=== PATIENT | female | born 1985 | race Caucasian/White ===

== ENCOUNTER 2017-02-23 00:57 | Inpatient (IN) | payer BC, OTHER ==
[~2017-02-23] VITALS: Ht 167.6 cm; Wt 46.3 kg
[~2017-02-23 00:57] MED LIST: DIPH25TA24 PO; LEVO75CA2 PO; NALT50TA9 PO; PRAZ2CAP3 PO; PRLSR20 PO; SERT100T PO
[2017-02-23] MEDS ORDERED: CNC/27 PO (01:15)
[2017-02-23] MEDS ORDERED: CEPH500C2 PO (01:16)
[2017-02-23] MEDS ORDERED: GENT0.3S6 EXT (01:18)
[2017-02-23] MEDS ORDERED: METH5TAB4 PO (01:19)
[2017-02-23] MEDS ORDERED: LEVO100T7 PO (01:20)
[2017-02-23] MEDS ORDERED: LEVO100C2 PO (01:29)
[2017-02-23] MEDS ORDERED: XYLOCAINE 1%/SOD BICARB 20 ML VIAL INFIL ONE (01:30)
[2017-02-23] MEDS ORDERED: ZOLPIDEM TARTRATE 5 MG TAB PO PRN (02:30)
[2017-02-23] MEDS ORDERED: ONDANSETRON INJ 2 MG/ML 2 ML VIAL IV PRN (02:30)
[2017-02-23] MEDS ORDERED: ACETAMINOPHEN 325 MG TAB PO PRN (02:30)
[2017-02-23 02:43] LABS: BASO % 0.4 %; BASO ABS # 0.02 K/uL (0-0.2); COMPLETE YES; EOS % 0.4 %; HEMATOCRIT 39.8 % (37-47); LYMPH ABS # 1.85 K/uL (1.2-3.4); MEAN CELL VOLUME 82.4 fL (80-100); MEAN CORPUSCULAR HEMOGLOBIN 26.7 pg (25-34); MEAN CORPUSCULAR HGB CONC 32.4 g/dl (32-36); MEAN PLATELET VOLUME 10.3 fL (7.4-10.4); MONO % 7.2 %; PLATELET COUNT 206 K/uL (130-400); RED BLOOD COUNT 4.83 M/uL (4.2-5.4); WHITE BLOOD COUNT 4.74 K/uL (4.8-10.8)
[2017-02-23] MEDS ORDERED: HYDROmorphone INJ 0.5 MG/0.5 ML SYR IV PRN (02:45)
--- NOTE | 2017-02-23 02:45 | EMERGENCY ROOM VISIT NOTE ---
History First contact with patient: :07 Chief Complaint: FINGER PAIN Stated Complaint: SEVERE PAIN IN FOREFINGER-DIAGNOSED INFECTION History of Present Illness The patient is a 31 year old female who presents to the Emergency Room with complaints of a worsening infection of her left index finger. The patient states that she has had swelling and pain in the finger for several days. She was seen by her nurse chemical dependency 4 days ago and prescribed Keflex orally and gentamicin drops, which she has been using since 3 days ago. She states that the swelling has increased and she has had worsening pain. She rates her discomfort an 8/10. She denies any injury to the finger. She denies any fevers. Review of Systems A complete 10 point review of systems was reviewed with the patient with pertinent positives and negatives as per history of present illness. All else were negative. Past Medical/Surgical History Medical Problems: (1) Felon of finger of left hand (2) IBS (irritable bowel syndrome) Surgical Problems: (1) [place] teeth extracted Family History Cancer Diabetes mellitus Heart disease Hypertension Social History Smoking Status: Never Smoker Alcohol Use: none Drug Use: none Marital Status: single Housing Status: lives with family Occupation Status: employed Current/Historical Medications Scheduled Cephalexin Monohydrate (Keflex), 500 MG PO BIDM Gentamicin Sulfate (Ophth) (Gentak), 1 APPLN EXT TID Levothyroxine Sodium (Tirosint), 100 MCG PO DAILY Methylphenidate (Ritalin), 5 MG PO DIRECTED Methylphenidate Hcl (Concerta), 27 MG PO DAILY Omeprazole (Prilosec), 20 MG PO DAILY Scheduled PRN Diphenhydramine Hcl (Benadryl), 25 MG PO Q6 PRN for ITCHING Physical Exam Vital Signs Date Time Temp Pulse Resp B/P (MAP) Pulse Ox O2 Delivery O2 Flow Rate FiO2 02/23/17 01:02 36.3 69 18 112/73 100 Room Air Physical Exam VITALS: Vitals are noted on the nurse's note and reviewed by myself. Vital signs stable. GENERAL: This is a 31-year-old female, in no acute distress, nondiaphoretic, well-developed well-nourished. MUSCULOSKELETAL: Redness, swelling and fluctuance to the finger pad left second finger. There is a small whitish area just lateral to the nail bed. There is significant tenderness to palpation over the entire distal phalanx of the finger. NEURO: Patient was alert and oriented to person place and time. Normal sensation to light and sharp touch. Medical Decision & Procedures ER Provider Diagnostic Interpretation: LEFT SECOND FINGER: Soft tissue swelling of the distal finger with no bony abnormalities. Laboratory Results ED Course The patient was evaluated as above. Case was discussed with Dr. Abarca of orthopedics. He will perform incision and drainage. Patient was evaluated by orthopedics. Please see their dictation for further course and patient disposition. Medical Decision Differential diagnosis includes felon, paronychia, tenosynovitis, among others. The patient is a 31-year-old female who presents today complaining of swelling and pain of the finger. Patient is on antibiotics as an outpatient and has been worsening. Exam is concerning for a felon. The case was discussed with orthopedics, Dr. Edge. He will evaluate the patient in the emergency Department for incision and drainage and possible admission. The patient's case was reviewed with Dr. Hansen, ED attending physician, who agreed with my assessment and treatment plan. Medication Reconcilliation Current Medication List: was personally reviewed by ak Blood Pressure Screening Patient's blood pressure: Normal blood pressure Impression Primary Impression: Felon of finger of left hand Departure Information Referrals Pako Jiang M.D. (PCP) Patient Instructions My [facility]
[2017-02-23 02:59] LABS: BLOOD UREA NITROGEN 14 mg/dl (7-18); BUN/CREATININE RATIO 21.7 (10-20); CALCIUM 9.4 mg/dl (8.5-10.1); CARBON DIOXIDE 29 mmol/L (21-32); CHLORIDE 100 mmol/L (98-107); CREATININE 0.64 mg/dl (0.60-1.20); GLUCOSE 84 mg/dl (70-99); POTASSIUM 3.5 mmol/L (3.5-5.1); SODIUM 135 mmol/L (136-145)
[2017-02-23 03:05] LABS: C-REACTIVE PROTEIN < 0.29 mg/dl (0-0.29)
--- NOTE | 2017-02-23 03:56 | History and Physical ---
History & Physical Date & Time of Service: Feb 23, 2017 at 03:45 Chief Complaint: Severe Pain In Forefinger-Diagnosed Infection Primary Care Physician: Pako Jiang M.D. History of Present Illness Patient is a 31-year-old right-hand dominant female who started having pain in the left index finger approximately week and a half ago. Pain is progressively worsened. She made an appointment to see a rod and tube straightener but it took a week to get in. She saw this individual on Friday and started on Keflex twice a day. Unfortunately her fingers continued to progress. She's been having purulent drainage from adjacent to the nail bed. She doesn't recall any trauma to the nail bed or the finger. She says the tip of the finger feels numb. Denies any fevers chills or systemic symptoms. Never previously had a problem with this finger. She says it feels better if she elevates it and worse if it' s in a dependent position. Past Medical/Surgical History Medical Problems: (1) IBS (irritable bowel syndrome) Status: Chronic Surgical Problems: (1) [place] teeth extracted Status: Resolved Family History Cancer Diabetes mellitus Heart disease Hypertension Patient reports a history of addiction to pain medication in her family Social History Smoking Status: Never Smoker Drug Use: none Marital Status: single Occupational Status: employed Multi-Drug Resistant Organisms History of MDRO: No Allergies Coded Allergies: Bupropion (Unverified Allergy, Mild, 02/23/17) Fluoxetine (Unverified Allergy, Mild, 02/23/17) Levothyroxine (Unverified Allergy, Mild, 02/23/17) Home Medications Scheduled Cephalexin Monohydrate (Keflex), 500 MG PO BIDM Gentamicin Sulfate (Ophth) (Gentak), 1 APPLN EXT TID Levothyroxine Sodium (Tirosint), 100 MCG PO DAILY Methylphenidate (Ritalin), 5 MG PO DIRECTED Methylphenidate Hcl (Concerta), 27 MG PO DAILY Omeprazole (Prilosec), 20 MG PO DAILY Scheduled PRN Diphenhydramine Hcl (Benadryl), 25 MG PO Q6 PRN for ITCHING Review of Systems Constitutional: No fever, No chills, No sweats Musculoskeletal: + joint pain, + swelling Neurologic: + numbness/tingling Physical Exam Vital Signs Date Time Temp Pulse Resp B/P (MAP) Pulse Ox O2 Delivery O2 Flow Rate FiO2 02/23/17 01:02 36.3 69 18 112/73 100 Room Air General Appearance: + mild distress Head: normocephalic, atraumatic Eyes: normal inspection Respiratory/Chest: no respiratory distress, no accessory muscle use Cardiovascular: normal peripheral pulses Extremities/Musculoskelatal: + inflammation, + swelling, + pertinent finding ( examination of her bilateral hands reveals full range of motion no tenderness and 5 out 5 strength with normal ligamentous exam on the right unaffected hand. On the affected left hand she has swelling from the DIP to the tip of the finger. There is redness and decreased sensation to light touch over the distal phalanx. There is yellowish colored area of purulence immediately under the skin that's visible just along the radial aspect of the fingernail. She has tenderness to palpation on both the dorsal and volar aspect of the finger. Range of motion is limited at the DIP joint from 0-30. Full range of motion at the PIP and MCP joints. Ligament exam is normal.) Neurologic/Psych: alert, oriented x 3 Skin: no rash Diagnostics Laboratory Results Results Past 24 Hours Test 02/23/17 02:30 Range/Units White Blood Count 4.74 4.8-10.8 K/uL Red Blood Count 4.83 4.2-5.4 M/uL Hemoglobin 12.9 12.0-16.0 g/dL Hematocrit 39.8 37-47 % Mean Corpuscular Volume 82.4 80-100 fL Mean Corpuscular Hemoglobin 26.7 25-34 pg Mean Corpuscular Hemoglobin Concent 32.4 32-36 g/dl Platelet Count 206 130-400 K/uL Mean Platelet Volume 10.3 7.4-10.4 fL Neutrophils (%) (Auto) 53.0 % Lymphocytes (%) (Auto) 39.0 % Monocytes (%) (Auto) 7.2 % Eosinophils (%) (Auto) 0.4 % Basophils (%) (Auto) 0.4 % Neutrophils # (Auto) 2.51 1.4-6.5 K/uL Lymphocytes # (Auto) 1.85 1.2-3.4 K/uL Monocytes # (Auto) 0.34 0.11-0.59 K/uL Eosinophils # (Auto) 0.02 0-0.5 K/uL Basophils # (Auto) 0.02 0-0.2 K/uL RDW Standard Deviation 46.8 36.4-46.3 fL RDW Coefficient of Variation 15.5 11.5-14.5 % Immature Granulocyte % (Auto) 0.0 % Immature Granulocyte # (Auto) 0.00 0.00-0.02 K/uL Erythrocyte Sedimentation Rate 38 0-21 mm/hr Sodium Level 135 136-145 mmol/L Potassium Level 3.5 3.5-5.1 mmol/L Chloride Level 100 98-107 mmol/L Carbon Dioxide Level 29 21-32 mmol/L Anion Gap 6.0 3-11 mmol/L Blood Urea Nitrogen 14 7-18 mg/dl Creatinine 0.64 0.60-1.20 mg/dl Est Creatinine Clear Calc Drug Dose 93.9 ml/min Estimated GFR () 138.8 Estimated GFR (Non- 119.7 BUN/Creatinine Ratio 21.7 10-20 Random Glucose 84 70-99 mg/dl Calcium Level 9.4 8.5-10.1 mg/dl C-Reactive Protein < 0.29 0-0.29 mg/dl Diagnostic Radiology X-rays 3 views of the left finger are reviewed. Soft tissue swelling is noted at the distal phalanx of the index finger. There is no bony erosions to suggest osteomyelitis. No arthritis noted on these films Impression Assessment and Plan Assessment left index finger paronychia. Plan: After informed consent was obtained the hand was prepped with Betadine. A digital nerve block was performed with 8 mL of 1% lidocaine without epinephrine. When she was numb, a 1/2 cm longitudinal incision was made along the radial aspect of the distal phalanx. Purulence was immediately encountered below the incision distally. A single swab culture was obtained and sent to the lab for Gram stain aerobic and anaerobic cultures. A curved hemostat was used to explore the abscess cavity which did track down to the bone of the distal phalanx. It did not have significant tracking into the volar pulp or dorsally. The finger was manually palpated to express any further purulence. I then irrigated out the wound was 100 mL of normal saline. Quarter-inch packing strip was packed into the wound to keep it open. A 2 x 2 and 4 x 4s and loose fitting Yaima wrap were applied followed by Coban. Patient will be admitted to the hospital. She'll be started on IV Unasyn. I' ll follow her cultures. She'll elevate the finger. Tomorrow I will remove the dressing and have her nurses soak the finger and none normal saline swishing it for a 30 minutes and then have her recover the wound with 2 x 2 Yaima wrap and a 1 inch Coban. She will elevate the finger. We'll continue her home medication. No DVT prophylaxis will be prescribed as she is young without risk factors and this is a small incision. VTE Prophylaxis VTE Risk Assessment Done? Y/N: Yes Risk Level: Very Low
[2017-02-23 04:15] VITALS: BP 109/73; PULSE 83; TEMP 36.8; O2SAT 100; Ht 167.6 cm; Wt 46.3 kg
[2017-02-23] MEDS: OXYCODONE/ACETAMINOPHEN 5-325 TAB PO PRN ×5 (04:18→19:39)
[2017-02-23] MEDS: AMPICILLIN/SULBACTAM SOD INJ 3,000 MG in SODIUM CHLORIDE 0.9% 100ML 100 ML IV SCH ×4 (04:55→22:10)
[2017-02-23] MEDS: LEVOTHYROXINE 0.1 MG PO SCH (05:03)
[2017-02-23 07:22] VITALS: BP 97/62; PULSE 81; TEMP 36.5; O2SAT 100
[2017-02-23] MEDS: PANTOprazole SOD 40 MG TAB PO SCH (07:25)
[2017-02-23] MEDS: DOCUSATE SODIUM 100 MG CAP PO SCH ×2 (07:25→21:00)
[2017-02-23] MEDS ORDERED: INFLUENZA VIRUS QUAD VACCINE 0.5 ML SYR IM. ONE (08:00)
[2017-02-23] MEDS ORDERED: INFLUENZA ADMINISTRATION CHARGE ONE (08:00)
--- NOTE | 2017-02-23 08:08 | DIAGNOSTIC IMAGING REPORT ---
LEFT SECOND FINGER 3 VIEWS HISTORY: left second finger swelling, pain COMPARISON: None. FINDINGS: There is no fracture or dislocation. Soft tissue swelling most pronounced distally. No erosions identified. No radiopaque foreign bodies. IMPRESSION: No fractures. Soft tissue swelling within the left index finger. Electronically signed by: Reddy Castro M.D. 02/23/2017 8:06 AM Dictated Date/Time: 02/23/2017 8:06 AM
[2017-02-23] MEDS: METHYLPHENIDATE HCL 10 MG TAB PO SCH (08:23)
[2017-02-23] MEDS: RANITIDINE HCL 150 MG TAB PO SCH ×2 (08:40→21:00)
[2017-02-23 15:05] VITALS: BP 99/63; PULSE 81; TEMP 36.6; O2SAT 100
[2017-02-23] MEDS: CONCERTA~ORDER AWAITING ACTION SCH ×3 (15:07→23:56)
[2017-02-23 15:20] VITALS: O2SAT 100
[2017-02-23] MEDS ORDERED: BENADRYL 25 MG PO PRN (19:30)
--- NOTE | 2017-02-23 19:45 | Orthopedic Progress Note ---
Orthopedic Progress Note Date of Service Feb 23, 2017. Subjective Reports: complaints (left index finger pain/pressure), Denies: SOB, nausea / vomiting, light headedness Additional Notes: Admitted this morning at around 4am after Left index finger I&D. Mother is in the room. Patient is tearful. Objective N/V intact, capillary refill less than 2 sec., dressing C/D/I, A&O x3 Dressings were removed. Finger looks good. Incision is bleeding. No purulent drainage. Intact motor function to finger at PIP and DIP. Date Time Temp Pulse Resp B/P (MAP) Pulse Ox O2 Delivery O2 Flow Rate FiO2 02/23/17 15:20 100 Room Air 02/23/17 15:05 36.6 81 16 99/63 (75) 100 Room Air 02/23/17 09:04 Room Air 02/23/17 07:22 36.5 81 16 97/62 (74) 100 Room Air 02/23/17 04:15 36.8 83 16 109/73 100 Room Air 02/23/17 03:53 62 18 104/69 98 Room Air 02/23/17 01:02 36.3 69 18 112/73 100 Room Air Laboratory Results 24 Hours: Test 02/23/17 02:30 White Blood Count 4.74 K/uL Red Blood Count 4.83 M/uL Hemoglobin 12.9 g/dL Hematocrit 39.8 % Mean Corpuscular Volume 82.4 fL Mean Corpuscular Hemoglobin 26.7 pg Mean Corpuscular Hemoglobin Concent 32.4 g/dl Platelet Count 206 K/uL Mean Platelet Volume 10.3 fL Neutrophils (%) (Auto) 53.0 % Lymphocytes (%) (Auto) 39.0 % Monocytes (%) (Auto) 7.2 % Eosinophils (%) (Auto) 0.4 % Basophils (%) (Auto) 0.4 % Neutrophils # (Auto) 2.51 K/uL Lymphocytes # (Auto) 1.85 K/uL Monocytes # (Auto) 0.34 K/uL Eosinophils # (Auto) 0.02 K/uL Basophils # (Auto) 0.02 K/uL Assessment & Plan Assessment: Left index finger s/p I&D Plan: Dressings were removed and finger was soaked for 20min in NSS. Bandages were re-applied. Will recheck the finger tomorrow and anticipate discharge if cultures are filed. continue ice/elevation continue pain medication as needed continue antibiotics until sensitivities are known. Discharge Planning Discharge Planning: home
[2017-02-23] MEDS ORDERED: IBUPROFEN 200 MG TAB PO PRN (20:15)
[2017-02-23 23:00] VITALS: BP 92/52; PULSE 65; TEMP 36.7; O2SAT 96
[2017-02-24] MEDS: LEVOTHYROXINE 0.1 MG PO SCH (05:38)
[2017-02-24] MEDS: AMPICILLIN/SULBACTAM SOD INJ 3,000 MG in SODIUM CHLORIDE 0.9% 100ML 100 ML IV SCH ×3 (05:38→17:05)
[2017-02-24 07:25] VITALS: BP 87/59; PULSE 71; TEMP 36.5; O2SAT 100
[2017-02-24] MEDS: CONCERTA~ORDER AWAITING ACTION SCH ×2 (07:31→16:00)
[2017-02-24] MEDS: RANITIDINE HCL 150 MG TAB PO SCH (08:52)
[2017-02-24] MEDS: PANTOprazole SOD 40 MG TAB PO SCH (08:52)
[2017-02-24] MEDS: DOCUSATE SODIUM 100 MG CAP PO SCH (08:52)
[2017-02-24] MEDS: METHYLPHENIDATE HCL 10 MG TAB PO SCH (08:56)
[2017-02-24] MEDS ORDERED: DiphenhydrAMINE HCL 12.5MG/5 ML UDC PO SCH (09:00)
[2017-02-24 09:13] VITALS: BP 102/72
[2017-02-24 15:30] VITALS: O2SAT 100
[2017-02-24 15:36] VITALS: BP 97/63; PULSE 79; TEMP 36.8; O2SAT 98
[2017-02-24] MEDS ORDERED: AMOX875T PO (16:23)
--- NOTE | 2017-02-24 16:28 | Discharge Instructions ---
Discharge Instructions Date of Service Feb 24, 2017. Admission Reason for Admission: Felon Of Finger Of Left Hand Discharge Discharge Diagnosis / Problem: Felon Left hand (index finger) Discharge Goals Goal(s): Decrease discomfort, Improve function, Increase independence Activity Recommendations Activity Limitations: as noted below Lifting Limitations: gradually increase as tolerated Exercise/Sports Limitations: none May Resume Sexual Activity: when tolerated Shower/Bathe: tomorrow, keep incision dry Driving or Machine Use: no limitations Keep incision site clean, dressed and covered. . Instructions / Follow-Up Instructions / Follow-Up Post-operative Instructions Dear Patient and Family/Friends, Before you are discharged from the hospital, it is important to know what to expect when you get home after surgery. To that end, we have created this sheet of discharge instructions which covers many commonly asked questions. Make sure you go through this sheet in its entirety with your nurse before you are discharged. Please note that we will go over the specifics of your surgery and recovery when you return for your first post-operative visit. Sincerely, Dr. Edge Pain Expect to be in a fair amount of pain after surgery. Remember, our goal is not to eliminate your pain, but to make it tolerable. It is a good idea to stay ahead of your pain by taking the medications you were prescribed once you get home. Typically, the pain starts improving 3-7 days after surgery. You should start weaning off the narcotic pain medication (oxycodone, hydrocodone, hydromorphone, morphine) as soon as your pain improves. Please call our office if your pain is not adequately controlled. Diet/Nausea/Vomiting Start by drinking clear liquids and eating crackers. If you can tolerate this, then you may resume your normal diet. If you feel nauseated or vomit, take Zofran/ondansetron (if prescribed). Please call our office if you have intractable nausea or vomiting, or, if after hours, you may go to the Emergency Room for help. Weight bearing and Range of Motion. Do not bear any weight through your operative extremity immediately after surgery. If you had upper extremity surgery, do not lift anything with that arm. If you are in a knee brace, keep it locked in place until your follow-up. We will discuss your weight bearing, range of motion, and lifting restrictions in detail at your first post-operative appointment. Continuous Passive Motion (CPM) Machine If you were prescribed a CPM machine, it will start after your first post- operative appointment, at which time we will give you instructions on the range of motion settings and duration of treatment Wound care and showering We will inspect your wound at your first post-operative visit, and may do a dressing change at that time. Most patients will be in a water-proof dressing that is removed 14 days after surgery. It is normal to see some dried blood on the dressing. Do not remove your dressing, paper strips or sutures yourself unless you are given permission. Showering is allowed the day after surgery. Do not scrub or remove any dressings. The wound should not be submerged underwater (i.e. in a bathtub or pool) until 4 weeks after surgery Return to Work Your return to work depends on what surgery was done and what type of work you do. Please bring any paperwork your employer needs completed to your first post -operative visit. Also, bring a description of your job duties, as this helps us to understand what risks you may face at work. Travel Avoid long distance travel (greater than 1 hour) in airplanes and cars for the first 6 weeks after surgery. If you must travel, you need to have a Doppler ultrasound done before you travel to rule out a blood clot in your legs. Follow-up You should have a follow-up appointment already scheduled 1-2 days after surgery. If not, please contact our office to make this appointment before you leave the hospital. (Follow up with Jamilah @ [facility] on 03/03/17. Call [phone] for appt time.) When to call the office It is normal to have swelling and bruising in the limb that was operated on. This will improve with time. It is also normal to have fevers for the first 2 days after surgery. Reasons you should call your doctor include: Uncontrolled pain; Nausea, vomiting, or constipation that does not improve with medication; Fevers over 101.5, chills, sweats; Drainage or bleeding from the wound; Foul odor; Spreading areas of redness; Any other concerns Current Hospital Diet Patient's current hospital diet: Regular Diet Discharge Diet Recommended Diet: Regular Diet Pending Studies Studies pending at discharge: no Medical Emergencies . Who to Call and When: Medical Emergencies: If at any time you feel your situation is an emergency, please call 911 immediately. . Non-Emergent Contact Non-Emergency issues call your: Primary Care Provider Call Non-Emergent contact if: you have a fever, temperature is above 101.5, your pain is not controlled, your pain is worsening, wound has increased drainage, wound has increased redness, you have any medication questions . "Provider Documentation" section prepared by Lawrence Houston. . VTE Core Measure Inpt VTE Proph given/why not?: Treatment not indicated [place] Drug Monitoring Program Search Results: patient reviewed within database, no issues identified, see additional documentation
--- NOTE | 2017-02-24 16:34 | Orthopedic Progress Note ---
Orthopedic Progress Note Date of Service Feb 24, 2017. Subjective Post OP Day: Day 2 s/p Left index finger I&D Reports: feeling well, pain controlled w PO medications, Denies: complaints, chest pain, SOB, nausea / vomiting, light headedness, calf pain, using PRICE CHANGER Objective N/V intact, capillary refill less than 2 sec., dressing C/D/I, incision C/D/I, A &O x3, CMS intact 1 cm incision site on lateral surface of Left index finger is only minimally tender to palpation. No active drainage/discharge. Limited ROM due to edema. Mild erythema. NO warmth, ecchymosis noted. Periph pulses easily palpable. N/ V intact in entire Lt hand with appropriate finger dexterity. Date Time Temp Pulse Resp B/P (MAP) Pulse Ox O2 Delivery O2 Flow Rate FiO2 02/24/17 15:36 36.8 79 16 97/63 (74) 98 Room Air 02/24/17 09:13 102/72 (82) 02/24/17 07:25 Room Air 02/24/17 07:25 36.5 71 16 87/59 (68) 100 Room Air 02/23/17 23:51 Room Air 02/23/17 23:00 36.7 65 18 92/52 (65) 96 Room Air Assessment & Plan Assessment: Left index finger s/p I&D Plan: Dressings were removed and finger is to be soaked for 20min in NSS. Bandages will need reapplied before discharge. continue ice/elevation continue pain medication as needed continue antibiotics until sensitivities are known. Start Oral Augmentin tonight F/u with Jamilah Houston PA-C at [facility] on Friday03/04/17. Discharge Planning Discharge Planning: home
--- NOTE | 2017-02-24 16:39 | Discharge Summary ---
Orthopedic Discharge Summary Admission Date/Reason Feb 23, 2017 at 02:29 Felon Of Finger Of Left Hand. Discharge Date/Disposition Feb 24, 2017 Home Diagnosis Principal Diagnosis: I&D felon Left index finger Procedure(s) Performed I&D of Felon of Left index finger Medication Reconciliation All previous home meds. Oral Keflex was discontinued Patient will be on oral Augmentin 875 BID x 14 days. Admission Physical Exam As per Admitting History & Physical. Hospital Course Over night stay with IV ABX after I&D of Left index finger felon. Patient did very well and is currently experiencing no pain and is ready to go home. After this evenings dose of Unysn patient may be discharged and is to start on oral Augmentin. Will F/u in our clinic on 03/04/17. Patient will call for appointment time. Discharge Instructions Please refer to the electronic Patient Visit Report (Discharge Instructions) for additional information.
[2017-02-24 18:01] VITALS: BP 97/63; PULSE 79; TEMP 36.8; O2SAT 98
== END 2017-02-24 18:38 | disposition home or self-care (01) | DRG 603 ==
LOC: C.EDB 00:58 → C.MSW 02:29 → ENRESERV 03:04
PROVIDERS: ADMIT Orthopaedic Surgery; ATTEND Orthopaedic Surgery
PROC: 0J9K0ZX Drainage of Left Hand Subcutaneous Tissue and Fascia, Open Approach, Diagnostic (ICD-10-PCS; principal; 2017-02-23)
DX: L03.012 Cellulitis of left finger (principal); Z79.899 Other long term (current) drug therapy; Z83.3 Family history of diabetes mellitus; Z82.49 Family history of ischemic heart disease and other diseases of the circulatory system; Z81.4 Family history of other substance abuse and dependence

== ENCOUNTER 2017-03-15 07:09 | Emergency (ER) | payer BC ==
[~2017-03-15] VITALS: Ht 167.6 cm; Wt 48.1 kg
[~2017-03-15 07:09] MED LIST changes: +CNC/27 PO; +GENT0.3S6 EXT; +LEVO100C2 PO; -LEVO75CA2 PO; +METH5TAB4 PO; -NALT50TA9 PO; -PRAZ2CAP3 PO; -SERT100T PO
[2017-03-15 07:13] VITALS: TEMP 36.3; Ht 167.6 cm; Wt 48.1 kg
[2017-03-15] MEDS ORDERED: XYLOCAINE 1%/SOD BICARB 20 ML VIAL INFIL ONE (07:18)
[2017-03-15] MEDS ORDERED: BUPIVACAINE 0.25% 30 ML VIAL ONE (07:25)
[2017-03-15] MEDS ORDERED: DIPH25CA5 PO (08:36)
[2017-03-15] MEDS ORDERED: OXYC-57 PO (08:46)
[2017-03-15] MEDS ORDERED: AMOX1TAB42 PO (08:46)
--- NOTE | 2017-03-15 08:53 | EMERGENCY ROOM VISIT NOTE ---
ED Visit Note First contact with patient: 07:38 31 yof s/p I&D L index finger paronychia 3 weeks ago. Was on oral antibiotics for 2 weeks afterwards. Has had recurrent swelling in the index finger since antibiotics completed 1 week ago. PE: L index finger swollen, worst around the nail and distal phalanx. NVI A: Recurrent L index finger paronychia Plan: After obtaining informed consent, her hand was prepped with betadine and sterily draped. A digital block was performed with a 1:1 mixture of 0.5% bupivicaine and 1% lidocaine. Once she was numb, an incision was made along the radial paronycial fold, extending longitudinally onto the eponycium. The was a small amount of purulence encountered, less than 1 cc. A freer elevator was used to lift the nail and 2 mm of the radial side of the nail was carefully trimmed to avoid damaging the sterile matrix. Necrotic appearing tissue was removed, and the skin was trimmed adjacent to her previous incision. The wound was irrigated with 1000 cc of normal saline, and the wound was packed with xeroform, then covered with a 4x4, 1 inch Kerlix and Coban. Patient tolerated this well She will D/C home to return tomorrow to the ER for a dressing change. Prescriptions given for Augmentin and Percocet. Follow-up in my clinic on Friday AM for another dressing change . Problem List Medical Problems: (1) IBS (irritable bowel syndrome) Status: Chronic Surgical Problems: (1) [place] teeth extracted Status: Resolved Current/Historical Medications Scheduled Levothyroxine Sodium (Tirosint), 100 MCG PO DAILY Methylphenidate (Ritalin), 5 MG PO DIRECTED Methylphenidate Hcl (Concerta), 27 MG PO DAILY Omeprazole (Prilosec), 20 MG PO DAILY Scheduled PRN Diphenhydramine Hcl (Benadryl), 25 MG PO Q6 PRN for Anxiety/Insomnia Allergies Coded Allergies: Bupropion (Verified Allergy, Mild, 03/15/17) Fluoxetine (Verified Allergy, Mild, 03/15/17) Levothyroxine (Verified Allergy, Mild, 03/15/17) Vital Signs Date Time Temp Pulse Resp B/P (MAP) Pulse Ox O2 Delivery O2 Flow Rate FiO2 03/15/17 07:13 36.3 79 16 115/77 99 Room Air Departure Information Impression Primary Impression: Paronychia of left index finger Dispostion Home / Self-Care Condition GOOD Prescriptions Amoxicillin & Pot Clavulanate (AMOXICILLIN/CLAVULANATE P) 1 Tab Tab 1 TAB PO BID for 7 Days, #14 TAB Prov: Jose Luis Edge MD 03/15/17 Oxycodone/Acetaminophen 5MG/325MG (PERCOCET 5MG/325MG) Tab 1-2 TABLETS PO Q4H Y for Pain for 5 Days, #20 TAB PAIN Prov: Jose Luis Edge MD 03/15/17 Referrals Pako Jiang M.D. (PCP) Patient Instructions My [facility] Additional Instructions Follow-up in the [facility] ER tomorrow for a dressing change. Remove dressing. Soak and swish finger in normal saline for 20 minutes, then pack the wound with xeroform, cover with 4x4, loosely wrap with 1 inch Kerlix and Coban. Take Augmentin as prescribed. Percocet given for pain control Work Instructions Return To Work: 1 week
[2017-03-15 09:12] VITALS: BP 113/67; PULSE 74; O2SAT 99
== END 2017-03-15 09:12 | disposition home or self-care (01) ==
LOC: C.EDB 07:10 → C.EDA 09:12
DX: L03.012 Cellulitis of left finger (principal); Z98.818 Other dental procedure status

== ENCOUNTER 2017-03-16 09:25 | Emergency (ER) | payer BC ==
[~2017-03-16] VITALS: Ht 167.6 cm; Wt 47.0 kg
[~2017-03-16 09:25] MED LIST changes: +AMOX1TAB42 PO; +DIPH25CA5 PO; -DIPH25TA24 PO; -GENT0.3S6 EXT; +OXYC-57 PO
[2017-03-16 09:27] VITALS: BP 100/67; PULSE 80; TEMP 36.8; O2SAT 98; Ht 167.6 cm; Wt 47.0 kg
--- NOTE | 2017-03-16 13:54 | EMERGENCY ROOM VISIT NOTE ---
History Report prepared by Bartolo: Valentine Jacobsen Under the Supervision of: Dr. Silas Keller M.D. First contact with patient: 09:35 Chief Complaint: WOUND RECHECK Stated Complaint: LEFT FINGER WOUND,RETURN VISIT Nursing Triage Summary: Pt states she is here for wound recheck, re pack. Left 2nd finger. History of Present Illness The patient is a 31 year old female who presents to the Emergency Room for a wound recheck. The patient had a paronychia of her left 2nd finger drained yesterday. She was told to return for wound recheck, packing, and rewrapping. The patient has been feeling well otherwise. She denies any fever or vomiting. She notes that she did not have a fever prior to the paronychia being drained. Before the paronychia, she first had a felon. She is right handed. Source of History: patient Onset: today Position: finger(s) (left 2nd) Quality: other (wound recheck) Timing: other (episodic) Associated Symptoms: No fevers, No vomiting Review of Systems See HPI for pertinent positives & negatives. A total of 2 systems reviewed and were otherwise negative. Past Medical & Surgical Medical Problems: (1) Felon of finger of left hand (2) IBS (irritable bowel syndrome) Surgical Problems: (1) [place] teeth extracted Family History Cancer Diabetes mellitus Heart disease Hypertension Social History Smoking Status: Never Smoker Alcohol Use: none Drug Use: none Marital Status: single Housing Status: lives with family Occupation Status: employed Current/Historical Medications Scheduled Amoxicillin & Pot Clavulanate (Amoxicillin/Clavulanate P), 1 TAB PO BID Levothyroxine Sodium (Tirosint), 100 MCG PO DAILY Methylphenidate (Ritalin), 5 MG PO DIRECTED Methylphenidate Hcl (Concerta), 27 MG PO DAILY Omeprazole (Prilosec), 20 MG PO DAILY Scheduled PRN Diphenhydramine Hcl (Benadryl), 25 MG PO Q6 PRN for Anxiety/Insomnia Oxycodone/Acetaminophen 5MG/325MG (Percocet 5MG/325MG), 1-2 TABLETS PO Q4H PRN for Pain Allergies Coded Allergies: Bupropion (Verified Allergy, Mild, 03/15/17) Fluoxetine (Verified Allergy, Mild, 03/15/17) Levothyroxine (Verified Allergy, Mild, 03/15/17) Physical Exam Vital Signs Date Time Temp Pulse Resp B/P (MAP) Pulse Ox O2 Delivery O2 Flow Rate FiO2 03/16/17 09:27 36.8 80 16 100/67 98 Room Air Physical Exam Constitutional: Vital signs reviewed. Musculoskeletal: The radial aspect of the left second digit demonstrates a subcentimeter skin avulsion without purulent drainage. There is a strip of avulsed epidermis just proximal to this. Integumentary: As above. Neurological: The patient is awake and alert. No focal deficits. Psychiatric: Normal affect. Medical Decision & Procedures ED Course 937: The patient was evaluated in room C1B. A complete history and physical exam was performed. I discussed sasha's findings with her. She verbalized agreement of the treatment plan. She was discharged home. Medical Decision This is a 31-year-old female presents for wound recheck. I did perform a limited focused review of portions of the patient's old chart on the electronic medical record. The patient was here yesterday for paronychia to the finger which [facility] She was sent home on antibiotics and pain medications. She was told to come back today for a dressing change. I did evaluate the patient as noted above. The dressing and Xeroform were removed carefully with normal saline. There is no cavity in which to place packing in this wound. I did use iodoform gauze which I placed over the avulsed skin and then applied Vaseline gauze over this. A 4 x 4 was placed over this and the dressing was secured with Coban. The patient was advised follow up tomorrow with her orthopedic doctor per her appointment. Medication Reconcilliation Current Medication List: was personally reviewed by me Blood Pressure Screening Patient's blood pressure: Normal blood pressure Blood pressure disposition: Did not require urgent referral Impression Primary Impression: Paronychia Additional Impression: Encounter for wound re-check Scribe Attestation The scribe's documentation has been prepared under my direct and personally reviewed by me in its entirety. I confirm that the note above accurately reflects all work, treatment, procedures, and medical decision making performed by me. Departure Information Dispostion Home / Self-Care Referrals Pako Jiang M.D. (PCP) Forms HOME CARE DOCUMENTATION FORM, IMPORTANT VISIT INFORMATION, WORK / SCHOOL INSTRUCTIONS Patient Instructions My [facility] Additional Instructions Follow up with your doctor tomorrow per your appointment. Problem Qualifiers
== END 2017-03-16 10:00 | disposition home or self-care (01) ==
LOC: C.EDB 09:26 → C.EDC 10:00
DX: Z48.01 Encounter for change or removal of surgical wound dressing (principal); L03.012 Cellulitis of left finger; K58.9 Irritable bowel syndrome, unspecified; Z79.899 Other long term (current) drug therapy; Z88.8 Allergy status to other drugs, medicaments and biological substances; Z80.9 Family history of malignant neoplasm, unspecified; Z83.3 Family history of diabetes mellitus; Z82.49 Family history of ischemic heart disease and other diseases of the circulatory system

== ENCOUNTER 2017-04-04 09:42 | Emergency (ER) | payer BC ==
[~2017-04-04] VITALS: Ht 167.6 cm; Wt 48.9 kg
[~2017-04-04 09:42] MED LIST changes: -NYSS/ PO
[2017-04-04 10:08] VITALS: TEMP 36.5; Ht 167.6 cm; Wt 48.9 kg
[2017-04-04] MEDS ORDERED: NYSS/ PO (10:51)
--- NOTE | 2017-04-04 11:21 | EMERGENCY ROOM VISIT NOTE ---
History First contact with patient: 10:13 Chief Complaint: OTHER COMPLAINT Stated Complaint: SWOLLEN LUMP ON FACE/JAW/NECK History of Present Illness The patient is a 31 year old female who presents to the Emergency Room with complaints of a right sided lump over her face and neck. Her and her mother report they are concerned for meningitis and infection due to the fact that the patient has recently had two surgeries on her left index finger. She states she has noticed the facial swelling for 3 days, and that her neck has also been painful for the past 5 days. She denies fevers, headaches, neck stiffness, visual changes, photophobia, weakness in upper or lower extremity, or flu symptoms. She reports chills, and fatigue and stated it was difficult to eat because the facial swelling would cause her pain. With regards to her finger, she had her first surgery at the end of January for a felon, and second surgery at the end of February for a paronychia with Dr. Edge. She completed 3 weeks total of antibiotics. She states she has an MRI arranged in the outpatient setting for her left index finger, as they are reportedly concerned about osteomyelitis. She reports tenderness in her finger but not over the rest of her hand, and has full ROM of her finger. 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 She states she was told her palpitations were normal and not to be concerned about. She reports feeling the palpitations more often than normal in the last month. Review of Systems See HPI for pertinent positives & negatives. A total of 10 systems reviewed and were otherwise negative. Past Medical/Surgical History Medical Problems: (1) Felon of finger of left hand (2) IBS (irritable bowel syndrome) Surgical Problems: (1) [place] teeth extracted Family History Cancer Diabetes mellitus Heart disease Hypertension Social History Smoking Status: Never Smoker Alcohol Use: none Drug Use: none Marital Status: single Housing Status: lives with family Occupation Status: employed Current/Historical Medications Scheduled Levothyroxine Sodium (Tirosint), 100 MCG PO DAILY Methylphenidate Hcl (Concerta), 27 MG PO DAILY Nystatin (Nystatin Suspension), 1 DOSE PO UD Omeprazole (Prilosec), 20 MG PO DAILY Scheduled PRN Diphenhydramine Hcl (Benadryl), 25 MG PO Q6 PRN for Anxiety/Insomnia Physical Exam Vital Signs Date Time Temp Pulse Resp B/P (MAP) Pulse Ox O2 Delivery O2 Flow Rate FiO2 04/04/17 12:57 100 16 95/57 98 Room Air 04/04/17 12:32 85 10 04/04/17 12:27 78 13 04/04/17 12:22 77 12 04/04/17 12:17 69 9 04/04/17 12:12 75 17 04/04/17 12:07 70 18 04/04/17 12:04 81 04/04/17 12:02 71 16 04/04/17 11:57 67 14 04/04/17 11:52 72 14 04/04/17 11:47 78 16 04/04/17 11:42 77 18 04/04/17 11:37 75 17 04/04/17 11:32 78 23 04/04/17 11:25 74 16 91/56 99 Room Air 04/04/17 11:25 91/56 04/04/17 10:08 36.5 78 20 104/66 98 Room Air Physical Exam General: Pt lying in bed, appears comfortable. Low BMI. HEENT: Head - normocephalic and atraumatic. Pupils are equal, round, and reactive to light. Extraocular eye muscles are intact and sclera are anicteric. Ears - bilaterally patent canals with noninjected tympanic membranes and no evidence of hemotympanum. Nose - moist nasal mucosa without discharge. Mouth - moist buccal mucosa. Oropharynx is nonerythematous and there is no tonsillar exudate or edema noted. Neck: Mild cervical lymphadenopathy in the submandibular area, <1cm and mildly tender. No JVD, nuchal rigidity, or auscultated bruits. Heart: Regular rate and rhythm. There is a normal S1 and loud S2 with no murmurs, clicks, or gallops appreciated. Lungs: Clear to auscultation bilaterally with no wheezes, rales, or rhonchi. Abdomen: Soft, completely nontender, nondistended, with good bowel sounds. There are no palpable pulsatile masses or hepatosplenomegaly. There is no guarding, rigidity, or rebound noted. Extremities: Left 2nd digit slightly swollen with medial aspect of nail removed. No drainage noted, not hot to touch, but tender to touch. No swelling, erythema or tenderness in rest of hand. No evidence of cyanosis, clubbing, or edema. There are easily palpable peripheral pulses. Neuro:The patient is awake and alert, oriented to day, time, and place. Medical Decision & Procedures Laboratory Results 04/04/17 11:21 04/04/17 11:21 Test 04/04/17 11:21 Red Blood Count 4.46 M/uL (4.2-5.4) Mean Corpuscular Volume 83.4 fL (80-100) Mean Corpuscular Hemoglobin 26.5 pg (25-34) Mean Corpuscular Hemoglobin Concent 31.7 g/dl (32-36) RDW Standard Deviation 43.7 fL (36.4-46.3) RDW Coefficient of Variation 14.3 % (11.5-14.5) Mean Platelet Volume 10.0 fL (7.4-10.4) Anion Gap 4.0 mmol/L (3-11) Est Creatinine Clear Calc Drug Dose 102.4 ml/min Estimated GFR () 140.2 Estimated GFR (Non- 121.0 BUN/Creatinine Ratio 15.2 (10-20) Calcium Level 8.9 mg/dl (8.5-10.1) Troponin I < 0.015 ng/ml (0-0.045) Thyroid Stimulating Hormone (TSH) 2.160 uIu/ml (0.300-4.500) Medications Administered Medications (Trade) Dose Ordered Sig/Marsha Route Start Time Stop Time Status Last Admin Dose Admin Sodium Chloride 1,000 ml @ 999 mls/hr Q1H1M STAT IV 04/04/17 11:47 04/04/17 12:47 DC 04/04/17 12:04 999 MLS/HR ECG Indication: palpitations Rate (beats per minute): 73 Rhythm: normal sinus Findings: no acute ischemic change, no ectopy ED Course 10:23: The patient was evaluated in room B5. A complete history and physical exam was performed. 10:40: The case was discussed with the attending physician, Dr. Snow. 10:55: The patient was seen with Dr. Snow. 11:47: Sodium Chloride 1L IV bolus ordered 12:44: Dr. Snow discussed findings with the patient and she was agreeable to discharge. Medical Decision Differential diagnosis includes cervical lymphadenopathy, neck sprain, TMJ syndrome, infections and other etiologies were considered. Ms. Geronimo is a 31 year old female who presented to the ED with complaints of fatigue and right sided facial/neck lump. I was unable to appreciate facial swelling on examination. Her CBC revealed a white cell count of 3.9 and her baseline is approximately 4. Her BMP, troponin and TSH were within normal limits , and EKG was unremarkable. She was felt to be stable for discharge and was counselled on returning to the ED if she developed fevers, n/v, worsening weakness or the swelling returned. Impression Primary Impression: Right facial swelling Departure Information Dispostion Home / Self-Care Referrals Pako Jiang M.D. (PCP) Patient Instructions My [facility] Resident Tracking Resident Involvement: Resident Care Provided Care Provided: Adult ED
[2017-04-04 11:38] LABS: HEMATOCRIT 37.2 % (37-47); HEMOGLOBIN 11.8 g/dL (12.0-16.0); MEAN CELL VOLUME 83.4 fL (80-100); MEAN CORPUSCULAR HEMOGLOBIN 26.5 pg (25-34); MEAN CORPUSCULAR HGB CONC 31.7 g/dl (32-36); PLATELET COUNT 212 K/uL (130-400); RED CELL DISTRIBUTION WIDTH CV 14.3 % (11.5-14.5); RED CELL DISTRIBUTION WIDTH SD 43.7 fL (36.4-46.3); WHITE BLOOD COUNT 3.82 K/uL (4.8-10.8)
[2017-04-04] MEDS ORDERED: SODIUM CHLORIDE 0.9% 1000ML 1,000 ML IV STA (11:47)
[2017-04-04 11:53] LABS: CALCIUM 8.9 mg/dl (8.5-10.1); CREATININE 0.62 mg/dl (0.60-1.20); POTASSIUM 3.7 mmol/L (3.5-5.1)
[2017-04-04 12:57] VITALS: BP 95/57; PULSE 100; O2SAT 98
--- NOTE | 2017-04-04 14:34 | EMERGENCY ROOM VISIT NOTE ---
History Report prepared by Bartolo: Barry Felix Under the Supervision of: Dr. Mart Snow D.O. First contact with patient: 10:13 Chief Complaint: OTHER COMPLAINT Stated Complaint: SWOLLEN LUMP ON FACE/JAW/NECK History of Present Illness The patient is a 31 year old female who presents to the Emergency Room with complaints of a resolved lump on the right side of her face that she had for the past 3 days. The patient states she developed a lump on the right side of her face that was tender to touch. She reports she is also experiencing intermittent neck pressure for the past 5 days. The patient notes she is overcoming an infection on her finger and has a sore in her mouth. The patient reports she received three weeks ago antibiotics. She states she is concerned of the infection spreading to her blood stream and causing meningitis. The patient reports she has also been experiencing intermittent palpitations in her chest. She notes she has been experiencing chills at home. The patient states she has a history of Marla. She reports her last bowel movement was this morning. The patient denies redness to her face, trouble swallowing, ear pain, cough, sorethroat, fevers, headaches, urinary symptoms, neck stiffness, photophobia, vomiting, chest pain, and shortness of breath. Source of History: patient Onset: three days ago Position: other (right face) Quality: other (lump) Timing: resolved Associated Symptoms: No fevers, No headache, No sorethroat, No cough, No neck pain, No chest pain, No SOB, No vomiting, No urinary symptoms Note: Associated symptoms: neck pressure, palpitations Denies: redness to her face, trouble swallowing, ear pain, neck stiffness, photophobia Review of Systems See HPI for pertinent positives & negatives. A total of 10 systems reviewed and were otherwise negative. Past Medical & Surgical Medical Problems: (1) Felon of finger of left hand (2) IBS (irritable bowel syndrome) Surgical Problems: (1) [place] teeth extracted Family History Cancer Diabetes mellitus Heart disease Hypertension Social History Smoking Status: Never Smoker Alcohol Use: none Drug Use: none Marital Status: single Housing Status: lives with family Occupation Status: employed Current/Historical Medications Scheduled Levothyroxine Sodium (Tirosint), 100 MCG PO DAILY Methylphenidate Hcl (Concerta), 27 MG PO DAILY Nystatin (Nystatin Suspension), 1 DOSE PO UD Omeprazole (Prilosec), 20 MG PO DAILY Scheduled PRN Diphenhydramine Hcl (Benadryl), 25 MG PO Q6 PRN for Anxiety/Insomnia Allergies Coded Allergies: Bupropion (Verified Allergy, Mild, 04/04/17) Fluoxetine (Verified Allergy, Mild, 04/04/17) Levothyroxine (Verified Allergy, Mild, 04/04/17) Physical Exam Vital Signs Date Time Temp Pulse Resp B/P (MAP) Pulse Ox O2 Delivery O2 Flow Rate FiO2 04/04/17 12:57 100 16 95/57 98 Room Air 04/04/17 12:32 85 10 04/04/17 12:27 78 13 04/04/17 12:22 77 12 04/04/17 12:17 69 9 04/04/17 12:12 75 17 04/04/17 12:07 70 18 04/04/17 12:04 81 04/04/17 12:02 71 16 04/04/17 11:57 67 14 04/04/17 11:52 72 14 04/04/17 11:47 78 16 04/04/17 11:42 77 18 04/04/17 11:37 75 17 04/04/17 11:32 78 23 04/04/17 11:25 74 16 91/56 99 Room Air 04/04/17 11:25 91/56 04/04/17 10:08 36.5 78 20 104/66 98 Room Air Physical Exam GENERAL: Sitting up in bed, disheveled, non-toxic EYE EXAM: normal conjunctiva. OROPHARYNX: no exudate, no erythema, lips, buccal mucosa, and tongue normal and mucous membranes are moist NECK: supple, no nuchal rigidity, no adenopathy, non-tender LUNGS: Clear to auscultation. Normal chest wall mechanics HEART: no murmurs, S1 normal and S2 normal ABDOMEN: abdomen soft, non-tender, normo-active bowel sounds, no masses, no rebound or guarding. BACK: Back is symmetrical on inspection and there is no deformity, no midline tenderness, no CVA tenderness. SKIN: no rashes and no bruising UPPER EXTREMITIES: upper extremities are grossly normal. Left index on lateral aspect is a callus/scab no erythema or induration LOWER EXTREMITIES: No pitting edema. NEURO EXAM: Normal sensorium, cranial nerves II-XII grossly intact, normal speech, no gross weakness of arms, no gross weakness of legs. Medical Decision & Procedures Laboratory Results 04/04/17 11:21 04/04/17 11:21 Test 04/04/17 11:21 Red Blood Count 4.46 M/uL (4.2-5.4) Mean Corpuscular Volume 83.4 fL (80-100) Mean Corpuscular Hemoglobin 26.5 pg (25-34) Mean Corpuscular Hemoglobin Concent 31.7 g/dl (32-36) RDW Standard Deviation 43.7 fL (36.4-46.3) RDW Coefficient of Variation 14.3 % (11.5-14.5) Mean Platelet Volume 10.0 fL (7.4-10.4) Anion Gap 4.0 mmol/L (3-11) Est Creatinine Clear Calc Drug Dose 102.4 ml/min Estimated GFR () 140.2 Estimated GFR (Non- 121.0 BUN/Creatinine Ratio 15.2 (10-20) Calcium Level 8.9 mg/dl (8.5-10.1) Troponin I < 0.015 ng/ml (0-0.045) Thyroid Stimulating Hormone (TSH) 2.160 uIu/ml (0.300-4.500) Laboratory results per my review. Medications Administered Medications (Trade) Dose Ordered Sig/Marsha Route Start Time Stop Time Status Last Admin Dose Admin Sodium Chloride 1,000 ml @ 999 mls/hr Q1H1M STAT IV 04/04/17 11:47 04/04/17 12:47 DC 04/04/17 12:04 999 MLS/HR ECG Indication: weakness Rate (beats per minute): 73 Rhythm: sinus rhythm Findings: nonspecific-ST abn (Anterolateral), T-wave inversion (Inferior), other (Normal axis) Comparison ECG Date: 10/08/2007 Change: The EKG has improved. ED Course ED COURSE: Vital signs were reviewed and showed a hypotensive heart rate. The patients medical record was reviewed The above diagnostic studies were performed and reviewed. ED treatments and interventions as stated above. 1015: The patient was evaluated in room B05 by the resident under my supervision. A complete history and physical examination was performed. 1030: The patient was evaluated in room B05 by me. A complete history and physical examination was performed. 1147: Ordered Sodium Chloride 1000 ml @ 999 mls/hr IV 1244: Upon reevaluation, the patient is resting comfortably. I discussed my findings with the patient and she understands and agrees with the treatment plan. I reviewed previous blood pressure, and the patient's baseline is in the 90s systolically. Based on the patients age, coexisting illnesses, exam and lab findings the decision to treat as an outpatient was made. The patient remained stable while under my care. The patient appeared well at the time of discharge. Medical Decision Differential Diagnosis includes but is not limited to dehydration, stroke, anemia, hypoglycemia, hyponatremia, hypernatremia, urinary tract infection, pneumonia, bronchitis, sepsis, gastroenteritis, additional abdominal pathology, metabolic abnormalities and infections. Patient is a 31-year-old female who presents to ER for right facial swelling associated with infection of her left second digit. She was referred in by her primary care doctor. She is also complaining of intermittent palpitations. On exam she has absolutely no facial swelling. She is able tolerate her prescription secretions. Nothing to suggest meningitis or encephalitis on exam. Nothing to suggest a peritonsillar or retropharyngeal abscess. Patient has minimal tenderness on the right side of her neck which is at the location of a lymph node. Vitals were unremarkable with exception of one episode of hypotension. That point systolic pressures were in the 90s. Upon review of her chart she is very frequently in the 90s. CBC shows a mild leukopenia which is consistent with previous blood work. BMP all his troponin and TSH was normal. EKG shows consistent/chronic with T waves/ST segment changes in the inferior and lateral. I do not believe that this is not ischemic. Patient family were updated bedside. She was discharged well-appearing without signs of infection to follow-up with PCP as an outpatient. Discussed with Pt concerning signs and symptoms to watch out for. Pt was instructed to follow up with their PCP and discussed with the patient their option to return to the ED at anytime for persistent or worsening symptoms. The appropriate anticipatory guidance and out-patient management, including indications for return to the emergency department, were explained at length to the patient and understood. Medication Reconcilliation Current Medication List: was personally reviewed by me Blood Pressure Screening Patient's blood pressure: Low blood pressure Blood pressure disposition: Did not require urgent referral Impression Primary Impression: Facial swelling Additional Impression: Weak Scribe Attestation The scribe's documentation has been prepared under my direction and personally reviewed by me in its entirety. I confirm that the note above accurately reflects all work, treatment, procedures, and medical decision making performed by me. Departure Information Dispostion Home / Self-Care Referrals Pako Jiang M.D. (PCP) Forms HOME CARE DOCUMENTATION FORM, IMPORTANT VISIT INFORMATION, WORK / SCHOOL INSTRUCTIONS Patient Instructions ED Weakness UKO, Heart Palpitations, My [facility] Additional Instructions Please follow up with your primary care doctor with in the next 24 hours. Any worsening of your symptoms, please return to the ED immediately. This includes any fevers greater than 100.4, worsening pain, chest pain, shortness breath, persistent nausea, vomiting, unable to eat or drink, or any other concerning signs or symptoms from your standpoint. You were given medications during this visit that will inhibit your ability to drive, operate machinery and work. Please do NOT drive, operate machinery, drink alcohol or work for the next 12hrs. Problem Qualifiers
== END 2017-04-04 13:04 | disposition home or self-care (01) ==
LOC: C.EDB 09:43
DX: R22.0 Localized swelling, mass and lump, head (principal); R53.83 Other fatigue; E06.3 Autoimmune thyroiditis; K58.9 Irritable bowel syndrome, unspecified; Z83.3 Family history of diabetes mellitus; Z82.49 Family history of ischemic heart disease and other diseases of the circulatory system

== ENCOUNTER → 2017-04-04 | Outpatient (CLI) | payer BC ==
[~2017-04-04] MED LIST changes: -AMOX1TAB42 PO; +NYSS/ PO; -OXYC-57 PO
--- NOTE | 2017-04-11 06:18 | CODING QUERY NO DIAGNOSIS ---
TREATMENT RENDERED WITHOUT A DIAGNOSIS To promote full compliance with coding requirements relating to patient care, physician participation is requested in all cases of carton maker uncertainty. Please assist us with providing a diagnosis/symptom for the test(s) below: A diagnosis/symptom was not documented on your Order. A valid diagnosis/symptom is required to bill all insurances. Please remember that we are unable to code a diagnosis of rule out, probable, possible, questionable, or suspected. Tests that require a diagnosis for date of service 04/04/17: * LEG LENGTH STUDY (WHOLE LEG) DIAGNOSIS: Provider Signature: Date: Thank you Michelle Bean [employer] Once completed, please kindly fax back to [phone] For questions please call [phone]
== END | disposition home or self-care (01) ==
LOC: C.RDSM 13:55
PROVIDERS: ATTEND Orthopaedic Surgery
DX: M25.561 Pain in right knee (principal); M22.2X1 Patellofemoral disorders, right knee

== ENCOUNTER → 2017-04-08 | Outpatient (CLI) | payer BC ==
[~2017-04-08] MED LIST changes: +GADAVIST IV PRN; -METH5TAB4 PO; +NYSS/ PO
--- NOTE | 2017-04-08 08:10 | DIAGNOSTIC IMAGING REPORT ---
L UPPER EXT NONJOINT COMBO CLINICAL HISTORY: L HAND NEURALGIA pain. Nausea. TECHNIQUE: Multiaxial MRI acquisition pre and post gadolinium COMPARISON STUDY: None FINDINGS: Signal characteristics the osseous structures are generally unremarkable. There is no bone marrow replacing process of the T1 images. Is present minimal degenerative change interphalangeal joints. There is a small synovial cyst ventral aspect distal aspect fourth metacarpal is immediately adjacent to the extensor tendon complex. No significant or significant postcontrast enhancement characteristics. No evidence for bone marrow replacing process such as osteomyelitis. Major ligamentous and tendinous structures appear to be intact. IMPRESSION: 1. No evidence for osteomyelitis. 2. Minimal degenerative change of the interphalangeal joints. 3. 6 mm synovial cyst ventral aspect of the distal fourth metacarpal. 4. No evidence for abscess, collection, or ligamentous/tendinous disruption. The above report was generated using voice recognition software. It may contain grammatical, syntax or spelling errors. Electronically signed by: Mesfin Jansen M.D. 04/08/2017 8:09 AM Dictated Date/Time: 04/08/2017 7:41 AM
== END | disposition home or self-care (01) ==
LOC: C.MRI 06:33
PROVIDERS: ATTEND Orthopaedic Surgery
DX: S60.941A Unspecified superficial injury of left index finger, initial encounter (principal); X58.XXXA Exposure to other specified factors, initial encounter

== ENCOUNTER → 2017-05-02 | Outpatient (CLI) | payer BC ==
[~2017-05-02] MED LIST changes: -GADAVIST IV PRN
--- NOTE | 2017-05-02 09:27 | DIAGNOSTIC IMAGING REPORT ---
R HIP UNILATERAL 2 VIEWS CLINICAL HISTORY: PAIN IN R HIP AND BACK COMPARISON STUDY: None. FINDINGS: No fracture or dislocation within the right hip. The visualized pelvic bones are intact. Soft tissues are unremarkable. Cartilage spaces are maintained for age. IMPRESSION: Unremarkable right hip. Electronically signed by: Reddy Castro M.D. 05/02/2017 9:26 AM Dictated Date/Time: 05/02/2017 9:25 AM
--- NOTE | 2017-05-02 09:30 | DIAGNOSTIC IMAGING REPORT ---
LUMBAR SPINE 5 VIEWS HISTORY: PAIN IN R HIP AND BACK COMPARISON: None. FINDINGS: There is no fracture. No subluxation. Disc spaces are preserved. Minimal levoscoliosis which may be positional. Moderate to large amount well-formed stool seen within the colon. IMPRESSION: No significant abnormality within the lumbar spine by conventional radiographic technique. Electronically signed by: Reddy Castro M.D. 05/02/2017 9:28 AM Dictated Date/Time: 05/02/2017 9:26 AM
== END | disposition home or self-care (01) ==
LOC: C.RAD 08:52
PROVIDERS: ATTEND Family Medicine
DX: M25.551 Pain in right hip (principal); M54.5 Low back pain

== ENCOUNTER → 2017-05-12 | Outpatient (CLI) | payer BC ==
[~2017-05-12] MED LIST changes: +GADAVIST IV PRN
--- NOTE | 2017-05-12 18:05 | DIAGNOSTIC IMAGING REPORT ---
LUMBAR SPINE COMBINATION CLINICAL HISTORY: 31 years-old Female with NEUROPATHY. Acute uropathy with right-sided weakness and low back pain. Known injury or history of cancer. COMPARISON: Lumbar spine radiographs 05/02/2017. TECHNIQUE: Multiplanar, multi sequence MRI of the lumbar spine was performed both with and without the use of 4.5 mL Gadavist FINDINGS: The large [id number]-[id number] demonstrator knitting localizer images demonstrate no gross abnormality of the abdomen, pelvis or paraspinal tissues. No aortic aneurysm or pathologic adenopathy identified. No acute fracture, subluxation or focal bone marrow edema identified. No focal soft tissue edema. The conus medullaris terminates at the L1 level. Imaged thoracic spinal cord and cauda equina appear unremarkable. Mild disc desiccation at L5-S1 as below. There is no abnormal enhancement identified. There is mildly decreased homogeneous T1 marrow signal throughout which may be secondary to anemia, smoking or other etiologies. No suspicious focal bone lesions identified. T12-L1: No central canal or neural foraminal stenosis. L1-L2: No central canal or neural foraminal stenosis. L2-L3: No central canal or neural foraminal stenosis. L3-L4: No central canal or neural foraminal stenosis. L4-L5: No central canal or neural foraminal stenosis. L5-S1: Mild disc desiccation with minimal intervertebral disc space narrowing. No significant disc bulge, central canal or foraminal narrowing. IMPRESSION: 1. Mild disc desiccation and minimal intervertebral disc space narrowing at L5-S1 without significant annular disc bulge, central canal or foraminal narrowing. 2. The remaining intervertebral disc spaces are maintained. No significant central canal or foraminal narrowing is seen at any level within the lumbar spine. 3. No abnormal enhancement. The above report was generated using voice recognition software. It may contain grammatical, syntax or spelling errors. Electronically signed by: Kendrick Ferrer M.D. 05/12/2017 6:03 PM Dictated Date/Time: 05/12/2017 5:43 PM
== END | disposition home or self-care (01) ==
LOC: C.MRI 16:46
PROVIDERS: ATTEND Family Medicine
DX: G12.20 Motor neuron disease, unspecified (principal)

== ENCOUNTER → 2017-08-05 | Outpatient (CLI) | payer BC ==
[~2017-08-05] MED LIST changes: -GADAVIST IV PRN
== END | disposition home or self-care (01) ==
LOC: C.LAB 08:59
PROVIDERS: ATTEND Psychiatry & Neurology Neurology
DX: E06.3 Autoimmune thyroiditis (principal); R53.83 Other fatigue; G60.3 Idiopathic progressive neuropathy; R60.0 Localized edema; M79.604 Pain in right leg

== ENCOUNTER 2021-10-24 16:05 | Observation (INO) ==
--- NOTE | 2021-10-24 16:12 | ED Triage Note ---
Date of Service October 24, 2021 History of Present Illness This patient was briefly evaluated while in triage. An abbreviated physical exam was performed. This patient is a 35-year-old Female with past medical history of gastroparesis, GERD, bipolar disorder, anorexia nervosa, and POTS, who presents to the ED for evaluation of chest pain that started 2 weeks ago. The pain was initially only with exercise and intermittent, now is more constant and at rest. No history of heart problems, not a smoker. Pain is in the left breast and radiates to the left shoulder. Sent by her PCP. History of lymphedema in legs, denies worse than usual and denies any calf pain. Physical Exam CONSTITUTIONAL: Pleasant and cooperative. No acute distress. Thin and appears underweight. RESPIRATORY: Clear to auscultation bilaterally. Equal expansion bilaterally. CARDIOVASCULAR: Regular rate and rhythm with no murmurs, rubs or gallops. Normal peripheral perfusion. Bilateral mild peripheral edema of the lower extremities. No tenderness to palpation, negative homans sign. GASTROINTESTINAL: Soft, nontender, nondistended. NEUROLOGIC: Alert and oriented X 4 with normal affect. Normal speech. Normal gait observed. Initial orders for labs and / or imaging were placed and patient was placed in the waiting area until a bed is available. Please see further documentation for the full ED course.
[2021-10-24 17:03] LABS: Basophils # (auto) 0.02 K/uL (0-0.2); Basophils % (auto) 0.5 %; Hematocrit (blood only) 36.3 % (34.1-44.9); Hemoglobin 10.9 g/dl (12.0-16.0); Immature Granulocytes # (auto) 0.01 K/uL (0.00-0.02); Immature Granulocytes % (auto) 0.2 %; Lymphocytes # (auto) 0.82 K/uL (1.2-3.4); Lymphocytes % (auto) 19.6 %; Mean Corpuscular Volume 76.7 fL (80.0-100.0); Mean Platelet Volume 11.2 fL (9.4-12.3); Monocytes # (auto) 0.26 K/uL (0.24-0.82); Monocytes % (auto) 6.2 %; Neutrophils # (auto) 3.07 K/uL (1.4-6.5); Neutrophils % (auto) 73.5 %; Platelet Count 194 K/uL (130-400); RDW Coefficient of Variation 20.6 % (11.5-14.5); RDW Standard Deviation 55.7 fL (36.4-46.3); Red Blood Count 4.73 M/uL (3.93-5.22); White Blood Count 4.18 K/ul (4.8-10.8)
[2021-10-24] MEDS ORDERED: SODIUM CHLORIDE 0.9% 1000ML 1,000 ML IV ONE (17:19)
--- NOTE | 2021-10-24 17:26 | Emergency Department Note ---
Impression & Plan Chest pain, Depression, Gastroparesis, Abnormal ECG ED Provider Note NAME: ALIA FELIPE AGE: 35 SEX: F : 1985 ARRIVES VIA: Walk-In INFORMANT: Patient ED PROVIDER(S): Mart Snow DO CHIEF COMPLAINT: chest pain HPI: Patient is a 35-year-old female with a past medical history of anorexia, bipolar disorder, gastroparesis, GERD, anxiety, depression, IBS who presents the ER referred in by PCP for failure to thrive and chest pain associated with weight loss. She has had intermittent chest pain for the past 2 weeks. It is only present with exertion but resolves with rest. She also gets left arm pain and jaw pain with it as well as shortness of breath. Denies any dysuria urgency or frequency. She also admits to palpitations and sometimes when these occur she gets the same chest pain. It resolves with rest. Patient denies diabetes, hypertension, hyperlipidemia, CAD, history of sudden at a young age, and smoking. History of anorexia but notes that she does not eat much as when she eats large quantities she gets sick to her stomach and sometimes will vomit as she gets an upset stomach. ROS: See above HPI for pertinent positives & negatives. A total of 10 systems reviewed and were otherwise negative. PAST MEDICAL HISTORY:See Below PAST SURGICAL HISTORY:See Below FAMILY HISTORY:See Below SOCIAL HISTORY:See Below HOME MEDICATIONS:See Below ALLERGIES:See Below VITALS:See Below PHYSICAL EXAMINATION: GENERAL: Sitting up in bed, alert, well appearing, well nourished, no distress, non-toxic EYE EXAM: normal conjunctiva. OROPHARYNX: no exudate, no erythema, lips, buccal mucosa, and tongue normal and mucous membranes are moist NECK: supple, no nuchal rigidity, no adenopathy, non-tender LUNGS: Clear to auscultation. Normal chest wall mechanics HEART: no murmurs, S1 normal and S2 normal ABDOMEN: abdomen soft, non-tender, normo-active bowel sounds, no masses, no rebound or guarding. UPPER EXTREMITIES: upper extremities are grossly normal. LOWER EXTREMITIES: No pitting edema. Calves are equal bilateral SKIN: Superficial lacerations on the left side of her abdomen NEURO EXAM: Normal sensorium, cranial nerves II-XII grossly intact, normal speech, no gross weakness of arms, no gross weakness of legs. MEDICAL DECISION MAKING: Patient is a 35-year-old female referred in by PCP for admission for failure to thrive in combination with chest pain. IV was established blood work was obtained. Labs show mild leukopenia 4000. Hemoglobin slightly low at 10. BMP LFTs magnesium more appropriate. Lipase slightly up at 87. TSH and free T4 were negative. hCG was negative. COVID was negative. She has superficial lacerations of the left side of her abdomen which were inflicted to help her rel ax per the patient. She denies any suicidal or homicidal ideations. She does appear to be clearly cachectic and malnourished. I do favor this likely related to an eating disorder in combination with her diagnosis of gastroparesis but cannot be certain at this time. His PCP was very concerned and recommended admission consequently discussed with Sergio Reagan for further evaluation. EKG showed ST wave changes although unchanged from previous with a negative troponin with symptoms have been present for greater than 6 hours not indicative of ACS. She has no belly pain at this time consequently no CT was performed. Triage Nursing notes reviewed. Limited review of prior medical records performed Vital Signs: reviewed and remarkable for no significant abnormalities Differential diagnosis: Differential diagnoses includes but is not limited to gastritis, peptic ulcer disease, GERD, gallbladder disease, pancreatitis, small bowel obstruction, acute coronary syndrome, pericarditis, ischemic bowel, irritable bowel disease, irritable bowel syndrome, appendicitis, diverticulitis, malignancy, hernia, urinary tract infection, torsion, [/ectopic (if female)], perforation, trauma, infectious. ER treatment provided: See below Diagnostics interpreted by me: ECG: Sinus rhythm rate of 91 ST depressions in the inferior leads as well as T wave inversions. Septal Q waves ST depressions in V3 through V6 with T wave inversion No significant change from previous. Cardiac Monitoring: An order was placed for continuous cardiac monitoring. The monitor shows a rate of 92 with sinus rhythm. Laboratory studies: As stated above and show below. 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 Echo done 10/20/19 shows trivial valve disease, normal LV function. 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 Postural orthostatic tachycardia syndrome Prediabetes diet controlled Raynauds disease Scleroderma Sjogrens syndrome Undifferentiated connective tissue disease Surgical History H/O left knee surgery History of anesthesia reaction "slow to wake " History of arthroscopy of right knee X 2 History of esophagogastroduodenoscopy (EGD) History of surgery x2--I&D of left pointer finger Hx of colonoscopy Hx of wisdom tooth extraction Family History Father Circulation problem Family history of diabetes mellitus Mini stroke Depression Cardiac disorder Family hx colonic polyps Family history of reaction to anesthesia slow to wake up Hypertension Grandfather Cardiac disorder Grandmother Myocardial infarction Hypertension Uncle Myocardial infarction Mother Depression Aunt Breast cancer Grandmother (Maternal) Family history of diabetes mellitus Denies family history of Ovarian cancer Colorectal cancer Social History Smoking Status: Never smoker Second Hand Exposure: No; Hx Alcohol Use: No Preferred Language: Nepali Communication Ability: Effective Visual Impairment: Limited Hearing Ability: Normal Gis Programmer Required: No Beliefs That Will Affect Care: None marital status: Single Current Living Situation: Parent Current Living Situation Comment: Lives with parents current occupational status: unemployed Feels Safe at Home: Yes Childhood Exposure to Second-Hand Smoke: No Dental Care, Regularly: No Physical Activity Frequency: Does not Exercise Seatbelt Use: always Sunscreen Use: Yes Do you think of yourself as: straight/heterosexual Assistive Devices: Crutches and Glasses Allergies Allergies Allergy/AdvReac Type Severity Reaction Status Date / Time bupropion Allergy Intermediate Hives Verified 10/24/21 18:34 ferumoxytol [From Feraheme] Allergy Intermediate Hypotension, Verified 10/24/21 18:34 flushing, nausea, back pain fluoxetine Allergy Intermediate Hives Verified 10/24/21 18:34 levothyroxine Allergy Intermediate Hives Verified 10/24/21 18:34 metoclopramide [From Reglan] AdvReac Intermediate Anxiety Verified 10/24/21 18:34 [id number] AdvReac Intermediate Confusion Verified 10/24/21 18:34 Home Meds Home Medications Medication Instructions Recorded Confirmed diphenhydramine HCl 25 mg capsule 75 mg PO HS 11/03/18 10/24/21 (Benadryl) [id number] C-Mn 500 2 cap PO BID 11/03/18 10/24/21 mg-400 mg capsule (Glucosamine Chondroitin Maximum Strength) sennosides 8.6 mg-docusate sodium 1 tabcap PO TID 01/27/19 10/24/21 50 mg tablet (Senokot-S) cholecalciferol (vitamin D3) 25 5,000 units PO QAM 02/11/19 10/24/21 mcg (1,000 unit) tablet (Vitamin D3) docusate sodium 100 mg capsule 100 mg PO TID 10/25/19 10/24/21 (Colace) levothyroxine 100 mcg capsule 100 mcg PO QAM 10/25/19 10/24/21 (Tirosint) lamotrigine 25 mg tablet (Lamictal) 75 mg PO QAM 04/14/20 10/24/21 naproxen sodium 220 mg capsule 220 mg PO BID PRN Pain 03/21/21 10/24/21 (Aleve) lamotrigine 150 mg tablet 75 mg PO DIRECTED 10/24/21 10/24/21 liothyronine 5 mcg tablet (Cytomel) 5 mcg PO QAM 10/24/21 10/24/21 methylphenidate HCl 18 mg 18 mg PO QAM 10/24/21 10/24/21 tablet,extended release 24 hr Previous Rx's Medication Instructions Recorded nystatin 100,000 unit/mL oral 10 ml PO QID #280 mL 06/11/19 suspension omeprazole magnesium 20 mg 40 mg PO BID #60 tabs 10/12/21 tablet,delayed release (Prilosec OTC) Results & Data (ED) Vital Signs Vital Signs - 24 hr 10/24/21 16:10 10/24/21 17:30 Temperature 36.5 C Temperature Source Temporal Artery Scan Pulse Rate 98 H Pulse Rate [Right Finger] 70 Respiratory Rate 15 18 Respiratory Effort / Characteristics Non-Labored Non-Labored Respiratory Depth Normal Blood Pressure 110/69 Blood Pressure Mean 82 Pulse Oximetry 99 98 Oxygen Delivery Method Room Air Sepsis Recent Fever Within 48 Hours No Sepsis New/Unexplained Change in Mental Status N/A Sepsis Action Taken by Nursing No Action Required Laboratory Data Result diagrams: 10/24/21 16:28 10/24/21 17:44 Lab Results 10/24/21 10/24/21 10/24/21 Range/Units 16:28 16:28 17:22 WBC 4.18 L (4.8-10.8) K/ul RBC 4.73 (3.93-5.22) M/uL Hgb 10.9 L (12.0-16.0) g/dl Hct 36.3 (34.1-44.9) % MCV 76.7 L (80.0-100.0) fL MCH 23.0 L (25.0-34.0) pg MCHC 30.0 L (32.0-36.0) g/dL RDW Std Deviation 55.7 H (36.4-46.3) fL RDW Coeff of Carrie 20.6 H (11.5-14.5) % Plt Count 194 (130-400) K/uL MPV 11.2 (9.4-12.3) fL Immature Gran % (Auto) 0.2 % Neut % (Auto) 73.5 % Lymph % (Auto) 19.6 % [place] % (Auto) 6.2 % Eos % (Auto) 0.0 % Baso % (Auto) 0.5 % Neut # (Auto) 3.07 (1.4-6.5) K/uL Lymph # (Auto) 0.82 L (1.2-3.4) K/uL [place] # (Auto) 0.26 (0.24-0.82) K/uL Eos # (Auto) 0.00 (0-0.50) K/uL Baso # (Auto) 0.02 (0-0.2) K/uL Immature Gran # (Auto) 0.01 (0.00-0.02) K/uL Anisocytosis Present Sodium 136 (136-145) mmol/L Potassium TNP Chloride 104 (98-107) mmol/L Carbon Dioxide 24 (21-32) mmol/L Anion Gap 8 (3-11) BUN 20 (6-23) mg/dl Creatinine 0.65 (0.6-1.2) mg/dl Est Cr Clr Drug Dosing Not Reportable Est GFR ( Amer) 134.3 ml/min Est GFR (Non-Af Amer) 115.8 ml/min BUN/Creatinine Ratio 30.8 H (10-20) Glucose 94 (70-99(Fasting)) mg/dl Calcium 9.1 (8.5-10.1) mg/dl Magnesium (1.7-2.4) mg/dl Total Bilirubin 0.4 (0.2-1.0) mg/dl AST TNP ALT 4 L (7-52) U/L Alkaline Phosphatase 47 (34-104) U/L Troponin I High Sens < 2.3 (0-14) pg/ml Total Protein 7.4 (6.0-8.3) gm/dl Albumin 4.5 (3.4-5.0) gm/dl Globulin 2.9 (2.5-4.0) gm/dl Albumin/Globulin Ratio 1.6 (0.9-2) Lipase 87 H (11-82) U/L TSH (0.300-4.500) uIu/ml Free T4 (0.61-1.60) ng/dl Free T3 (2.3-4.2) pg/ml HCG, Qual (Negative) SARS-CoV-2, RNA, NAAT NEGATIVE (NEGATIVE) 10/24/21 10/24/21 10/24/21 Range/Units 17:44 17:44 17:44 WBC (4.8-10.8) K/ul RBC (3.93-5.22) M/uL Hgb (12.0-16.0) g/dl Hct (34.1-44.9) % MCV (80.0-100.0) fL MCH (25.0-34.0) pg MCHC (32.0-36.0) g/dL RDW Std Deviation (36.4-46.3) fL RDW Coeff of Carrie (11.5-14.5) % Plt Count (130-400) K/uL MPV (9.4-12.3) fL Immature Gran % (Auto) % Neut % (Auto) % Lymph % (Auto) % [place] % (Auto) % Eos % (Auto) % Baso % (Auto) % Neut # (Auto) (1.4-6.5) K/uL Lymph # (Auto) (1.2-3.4) K/uL [place] # (Auto) (0.24-0.82) K/uL Eos # (Auto) (0-0.50) K/uL Baso # (Auto) (0-0.2) K/uL Immature Gran # (Auto) (0.00-0.02) K/uL Anisocytosis Sodium (136-145) mmol/L Potassium 4.4 Chloride (98-107) mmol/L Carbon Dioxide (21-32) mmol/L Anion Gap (3-11) BUN (6-23) mg/dl Creatinine (0.6-1.2) mg/dl Est Cr Clr Drug Dosing Est GFR ( Amer) ml/min Est GFR (Non-Af Amer) ml/min BUN/Creatinine Ratio (10-20) Glucose (70-99(Fasting)) mg/dl Calcium (8.5-10.1) mg/dl Magnesium 2.0 (1.7-2.4) mg/dl Total Bilirubin (0.2-1.0) mg/dl AST 10 L ALT (7-52) U/L Alkaline Phosphatase (34-104) U/L Troponin I High Sens (0-14) pg/ml Total Protein (6.0-8.3) gm/dl Albumin (3.4-5.0) gm/dl Globulin (2.5-4.0) gm/dl Albumin/Globulin Ratio (0.9-2) Lipase (11-82) U/L TSH 3.579 (0.300-4.500) uIu/ml Free T4 0.90 (0.61-1.60) ng/dl Free T3 (2.3-4.2) pg/ml HCG, Qual Negative (Negative) SARS-CoV-2, RNA, NAAT (NEGATIVE) 10/24/21 Range/Units 17:44 WBC (4.8-10.8) K/ul RBC (3.93-5.22) M/uL Hgb (12.0-16.0) g/dl Hct (34.1-44.9) % MCV (80.0-100.0) fL MCH (25.0-34.0) pg MCHC (32.0-36.0) g/dL RDW Std Deviation (36.4-46.3) fL RDW Coeff of Carrie (11.5-14.5) % Plt Count (130-400) K/uL MPV (9.4-12.3) fL Immature Gran % (Auto) % Neut % (Auto) % Lymph % (Auto) % [place] % (Auto) % Eos % (Auto) % Baso % (Auto) % Neut # (Auto) (1.4-6.5) K/uL Lymph # (Auto) (1.2-3.4) K/uL [place] # (Auto) (0.24-0.82) K/uL Eos # (Auto) (0-0.50) K/uL Baso # (Auto) (0-0.2) K/uL Immature Gran # (Auto) (0.00-0.02) K/uL Anisocytosis Sodium (136-145) mmol/L Potassium Chloride (98-107) mmol/L Carbon Dioxide (21-32) mmol/L Anion Gap (3-11) BUN (6-23) mg/dl Creatinine (0.6-1.2) mg/dl Est Cr Clr Drug Dosing Est GFR ( Amer) ml/min Est GFR (Non-Af Amer) ml/min BUN/Creatinine Ratio (10-20) Glucose (70-99(Fasting)) mg/dl Calcium (8.5-10.1) mg/dl Magnesium (1.7-2.4) mg/dl Total Bilirubin (0.2-1.0) mg/dl AST ALT (7-52) U/L Alkaline Phosphatase (34-104) U/L Troponin I High Sens (0-14) pg/ml Total Protein (6.0-8.3) gm/dl Albumin (3.4-5.0) gm/dl Globulin (2.5-4.0) gm/dl Albumin/Globulin Ratio (0.9-2) Lipase (11-82) U/L TSH (0.300-4.500) uIu/ml Free T4 (0.61-1.60) ng/dl Free T3 2.41 (2.3-4.2) pg/ml HCG, Qual (Negative) SARS-CoV-2, RNA, NAAT (NEGATIVE) Administered Medications Pantoprazole Sodium (Pantoprazole 40 Mg Tab) 40 mg PO BID CARLITOS Stop: 11/23/21 20:59 Last Admin: 10/24/21 20:27 Dose: Not Given Documented By: AP Discontinued Medications Sodium Chloride (Nss 1000ml) 1,000 mls @ 999 mls/hr IV .Q1H1M ONE Stop: 10/24/21 18:19 Last Infusion: 10/24/21 18:32 Dose: 0 mls/hr Documented By: Admin: 10/24/21 17:30 Dose: 999 mls/hr Documented By: SAMUEL Imaging Data Radiologist's Impression: Chest X-Ray 10/24/21 16:12 XR chest 1V portable HISTORY: 35 years-old Female Chest Pain . Atypical chest pain COMPARISON: CTA chest and chest radiograph studies 10/14/2021 TECHNIQUE: Portable AP view of the chest FINDINGS: The cardiomediastinal and hilar silhouettes are within normal limits. No pneumothorax, pleural effusion, airspace consolidation or overt pulmonary edema. Right apical pulmonary opacities are better seen on the comparison CTA of the chest. Bones of the chest appear grossly intact. IMPRESSION: No acute process. ACT 112: Negative or not required by law. The above report was generated using voice recognition software. It may contain grammatical, syntax or spelling errors. Electronically signed by: Raul Ferrer M.D. 10/24/2021 5:24 PM Discharge Plan Visit Data Chief Complaint: Cardiac Assessment Stated Complaint: DR REFERRED FOR HEART ISSUES TO BE ADMITTED ED Provider: Mart Snow Discharge Problem: Chest pain, Depression, Gastroparesis, Abnormal ECG Discharge Instructions Interventions: ED Discharge Assessment Last Done: 10/24/21 20:55
[2021-10-24 17:33] LABS: Alanine Aminotransferase 4 U/L (7-52); Albumin Globulin Ratio 1.6 (0.9-2); Albumin Level 4.5 gm/dl (3.4-5.0); Alkaline Phosphatase 47 U/L (34-104); Anion Gap 8 (3-11); BUN Creatinine Ratio 30.8 (10-20); Bilirubin,Total 0.4 mg/dl (0.2-1.0); Blood Urea Nitrogen 20 mg/dl (6-23); Calcium 9.1 mg/dl (8.5-10.1); Carbon Dioxide 24 mmol/L (21-32); Chloride 104 mmol/L (98-107); Est GFR (African American) 134.3 ml/min; Est GFR (Non-African American) 115.8 ml/min; Globulin 2.9 gm/dl (2.5-4.0); Glucose 94 mg/dl (70-99(Fasting)); Lipase 87 U/L (11-82); Sodium 136 mmol/L (136-145); Total Protein 7.4 gm/dl (6.0-8.3); Troponin I High Sensitivity < 2.3 pg/ml (0-14)
[2021-10-24 17:43] LABS: Anisocytosis Present
[2021-10-24 18:25] LABS: Potassium 4.4 mmol/L (3.5-5.1)
[2021-10-24 18:31] LABS: Pregnancy Test, Serum Negative (Negative)
--- NOTE | 2021-10-24 18:37 | History & Physical Report ---
Date of Service October 24, 2021 Assessment & Plan (1) Chest pain: Plan: 3 separate episodes of exercise-induced chest pain. Also notes occasional palpitations that cause chest pain, sometimes caused by eating food and other times without inciting event. - PCP worried chest pain is anginal in nature and sent her for emergent evaluation - No chest pain on my interview today. Initial troponin was negative. EKG showed TWIs in V2 - V6, II, III, and aVF. This appears stable to me going back to 2019. - Discussed with cardiology. Will get echo. Defer stress test until evaluated by them. - Defer ASA given concern for gastric ulcer. Defer beta-gonzalo & statin until we determine if she has actual CAD. - FLP in AM (2) Epigastric pain: Plan: Has been following with GI who have some concern for gastric ulcer with heavy NSAID use. - Continue home PPI PO BID - GI consulted (3) Weight loss: Plan: Weight loss over this last year with reduce PO intake. Follows with multiple GI groups. - Nutrition consult (4) Hypothyroidism: Plan: Takes both levothyroxine and liothyronine. - Continue home meds - Get TSH, FT4, and FT3 (5) Bipolar 2 disorder: Plan: Mood appears somewhat depressed, but overall normal. - Continue home lamotrigine (6) EDS (Cheyenne-Danlos syndrome): Plan: Unclear diagnosis with note made of "undifferentiated connective tissue disease." Also notes made of scleroderma Ab without clinical features and Sjogren's. Not clear to me what diagnoses the patient actually carries. - No inpatient needs (7) DVT prophylaxis: Plan: SCDs - Low DVT risk per admission calculator History of Present Illness Primary Care Provider: Niko Solitario MD 35yo F w/ hx of scleroderma, Sjogren's syndrome, and gastroparesis who presents for chest pain and failure to thrive. The patient reports that she has had a recent trauma and has had a gastroparesis flare up and has been able to have a lot less food than recently. Per GI note, she has mostly been consisting on 1-2 protein shakes a day. Her GI & PCP notes indicate she has lost about 15 lbs this month. She has seen a variety of providers for this, including [facility], [facility], and with plans to see [facility] soon. She was recently seen by [facility] with concern for an ulcer given her large NSAID use. The reason she was sent today is for chest pain. She notes that she was working out two days ago (10/14) lightly on an exercise bike and had an episode of palpitations and chest pain. She describes the pain as a central and left-sided chest pain and palpitations that resolved with rest. She attempted some light work-out the next day with another episode of chest pain with dizziness and nausea. She saw her PCP on 10/17, and per her report, was given a normal bill of health. She then tried to work out this past Friday. She reports a more prolonged period of chest pain with similar symptoms. Allergies Allergy/AdvReac Type Severity Reaction Status Date / Time bupropion Allergy Intermediate Hives Verified 10/24/21 18:34 ferumoxytol [From Feraheme] Allergy Intermediate Hypotension, Verified 10/24/21 18:34 flushing, nausea, back pain fluoxetine Allergy Intermediate Hives Verified 10/24/21 18:34 levothyroxine Allergy Intermediate Hives Verified 10/24/21 18:34 metoclopramide [From Reglan] AdvReac Intermediate Anxiety Verified 10/24/21 18:34 technetium-99m AdvReac Intermediate Confusion Verified 10/24/21 18:34 Home Medications Medication Instructions Recorded Confirmed Type diphenhydramine HCl 25 mg capsule 75 mg PO HS 11/03/18 10/24/21 History (Benadryl) [id number] C-Mn 500 2 cap PO BID 11/03/18 10/24/21 History mg-400 mg capsule (Glucosamine Chondroitin Maximum Strength) sennosides 8.6 mg-docusate sodium 1 tabcap PO TID 01/27/19 10/24/21 History 50 mg tablet (Senokot-S) cholecalciferol (vitamin D3) 25 5,000 units PO QAM 02/11/19 10/24/21 History mcg (1,000 unit) tablet (Vitamin D3) nystatin 100,000 unit/mL oral 10 ml PO QID #280 mL 06/11/19 10/24/21 Rx suspension docusate sodium 100 mg capsule 100 mg PO TID 10/25/19 10/24/21 History (Colace) levothyroxine 100 mcg capsule 100 mcg PO QAM 10/25/19 10/24/21 History (Tirosint) lamotrigine 25 mg tablet (Lamictal) 75 mg PO QAM 04/14/20 10/24/21 History naproxen sodium 220 mg capsule 220 mg PO BID PRN Pain 03/21/21 10/24/21 History (Aleve) omeprazole magnesium 20 mg 40 mg PO BID #60 tabs 10/12/21 10/24/21 Rx tablet,delayed release (Prilosec OTC) lamotrigine 150 mg tablet 75 mg PO DIRECTED 10/24/21 10/24/21 History liothyronine 5 mcg tablet (Cytomel) 5 mcg PO QAM 10/24/21 10/24/21 History methylphenidate HCl 18 mg 18 mg PO QAM 10/24/21 10/24/21 History tablet,extended release 24 hr Past Med/Surg History Medical History ADHD Anxiety Bipolar 2 disorder Bowel dysfunction delayed motility Burning mouth syndrome chronic Chronic constipation Depression Difficulty swallowing chronic Dry mouth 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 Echo done 10/20/19 shows trivial valve disease, normal LV function. 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 Postural orthostatic tachycardia syndrome Prediabetes diet controlled Raynauds disease Scleroderma Sjogrens syndrome Undifferentiated connective tissue disease Surgical History H/O left knee surgery History of anesthesia reaction "slow to wake " History of arthroscopy of right knee X 2 History of esophagogastroduodenoscopy (EGD) History of surgery x2--I&D of left pointer finger Hx of colonoscopy Hx of wisdom tooth extraction Family History Father Circulation problem Family history of diabetes mellitus Mini stroke Depression Cardiac disorder Family hx colonic polyps Family history of reaction to anesthesia slow to wake up Hypertension Grandfather Cardiac disorder Grandmother Myocardial infarction Hypertension Uncle Myocardial infarction Mother Depression Aunt Breast cancer Grandmother (Maternal) Family history of diabetes mellitus Denies family history of Ovarian cancer Colorectal cancer Social History Smoking Status: Never smoker Second Hand Exposure: No; Hx Alcohol Use: No Preferred Language: Mexican Communication Ability: Effective Visual Impairment: Limited Hearing Ability: Normal Photographer'S Assistant Required: No Beliefs That Will Affect Care: None marital status: Single Current Living Situation: Parent Current Living Situation Comment: Lives with parents current occupational status: unemployed Feels Safe at Home: Yes Childhood Exposure to Second-Hand Smoke: No Dental Care, Regularly: No Physical Activity Frequency: Does not Exercise Seatbelt Use: always Sunscreen Use: Yes Do you think of yourself as: straight/heterosexual Assistive Devices: Crutches and Glasses Review of Systems Review of Systems: All systems reviewed & are unremarkable except as noted in HPI & below Physical Exam Constitutional: WD/WN, vitals as above Eyes: EOM intact bilaterally; no conjunctival abnormality ENMT: external ear and nose normal, oropharynx normal Neck: trachea midline, no thyromegaly normal visual inspection Respiratory: normal respiratory effort, lungs clear to auscultation no respiratory distress Cardiovascular: RRR, no murmur, no edema Gastrointestinal (Abdomen): Inspection/Auscultation: abdomen normal to inspection; abdomen not distended Musculoskeletal: no cyanosis or clubbing, extremities motor strength 5/5 Skin: no rashes, warm and dry Neurologic: moves all extremities and awake Psychiatric: Orientation: alert, oriented to person and cooperative Results & Data Results & Data ([facility]) Vital Signs (Past 12 Hours) Vital Signs Temp Pulse Pulse Resp BP Pulse Ox O2 Del Method 10/24/21 17:30 70 18 98 Room Air 10/24/21 16:10 36.5 C 98 H 15 110/69 99 Code Status & VTE Plan VTE Prophylaxis Plan VTE Prophylaxis will be ordered: Yes PG Care Time/CCT Total # of Minutes Spent Total Time Spent with Patient: Total time spent is greater than 50% in coordination of care (as documented) at patient's floor/unit and/or counseling patient: Coding Level of Care Code INT OBSERVATION CARE 70M LVL 3 Diagnoses Chest pain R07.9 Epigastric pain R10.13 Weight loss R63.4 Hypothyroidism E03.9 Bipolar 2 disorder F31.81 EDS (Cheyenne-Danlos syndrome) Q79.60 DVT prophylaxis Z29.9
[2021-10-24 19:19] LABS: Thyroid Stimulating Hormone 3.579 uIu/ml (0.300-4.500)
[2021-10-24 19:24] LABS: T4 Free Thyroxine 0.9 ng/dl (0.61-1.60)
[2021-10-24] MEDS: PANTOprazole 40 MG TAB PO SCH (20:27)
[2021-10-24] MEDS ORDERED: ONDANSETRON INJ 2 MG/ML 2 ML VIAL IV PRN (20:34)
[2021-10-24] MEDS ORDERED: diphenhydrAMINE Capsule 25 MG CAP PO PRN (20:34)
[2021-10-24] MEDS ORDERED: ACETAMINOPHEN 325 MG TAB PO PRN (20:34)
[2021-10-24] MEDS ORDERED: HYDROXYCHLOROQUINE SULFATE 200 MG TAB PO SCH (21:00)
[2021-10-24] MEDS: DOCUSATE SODIUM/SENNA 50/8.6MG TAB PO SCH (22:23)
[2021-10-24] MEDS: DOCUSATE SODIUM 100 MG CAP PO SCH (22:23)
[2021-10-24] MEDS: lamoTRIgine 25 MG TAB PO SCH (22:25)
[2021-10-25] MEDS ORDERED: LEVOTHYROXINE SODIUM 100 MCG TABLET PO SCH (06:30)
[2021-10-25 06:44] LABS: Hematocrit (blood only) 33.9 % (34.1-44.9); Hemoglobin 10.3 g/dl (12.0-16.0); Immature Retic Fraction 11.5 % (3.0-15.9); Mean Corpuscular Hemoglobin 23.1 pg (25.0-34.0); Mean Corpuscular Hgb Conc 30.4 g/dL (32.0-36.0); Mean Platelet Volume 10.2 fL (9.4-12.3); Platelet Count 192 K/uL (130-400); RDW Coefficient of Variation 19.9 % (11.5-14.5); RDW Standard Deviation 54.6 fL (36.4-46.3); Red Blood Count 4.46 M/uL (3.93-5.22); Reticulated Hemoglobin 25.3 pg (28.2-36.6); Reticulocyte % 1.2 % (0.5-2.0); Reticulocytes # 0.05 10^6/uL (0.02-0.10); White Blood Count 3.97 K/ul (4.8-10.8)
[2021-10-25] MEDS ORDERED: TIROSINT 100 MCG PO SCH (07:00)
[2021-10-25 07:22] LABS: BUN Creatinine Ratio 21.3 (10-20); Chol HDL Ratio 2.5 (0-5); Creatinine Clr Calc Pharmacy 93.5 ml/min; Est GFR (African American) 137.1 ml/min; Est GFR (Non-African American) 118.3 ml/min; Phosphorus 3.4 mg/dl (2.5-4.9); Potassium 3.4 mmol/L (3.5-5.1)
[2021-10-25 07:29] LABS: Ferritin 3.9 ng/ml (8-388)
[2021-10-25 07:33] LABS: Folate (Folic Acid) 7.63 ng/ml (>5.38)
--- NOTE | 2021-10-25 07:33 | Hospitalist Progress Note ---
Date of Service October 25, 2021 Assessment & Plan Admission and Anticipated Discharge Date Admission Date: October 24, 2021 Results & Data Results & Data ([facility]) Vital Signs (Past 12 Hours) Vital Signs Temp Pulse Pulse Resp BP BP Pulse Ox 10/25/21 02:20 56 L 10/25/21 02:20 36.8 C 82 18 115/81 100 10/24/21 22:26 61 12 106/60 100 10/24/21 20:55 36.6 C 56 L 18 105/62 100 O2 Del Method 10/25/21 02:20 10/25/21 02:20 Room Air 10/24/21 22:26 Room Air 10/24/21 20:55 Room Air
[2021-10-25] MEDS ORDERED: POTASSIUM CHLORIDE CRTAB 20 MEQ TABCR PO ONE (07:51)
[2021-10-25] MEDS: PANTOprazole 40 MG TAB PO SCH (08:21)
[2021-10-25] MEDS: DOCUSATE SODIUM 100 MG CAP PO SCH (08:21)
[2021-10-25] MEDS: DOCUSATE SODIUM/SENNA 50/8.6MG TAB PO SCH ×2 (08:21→13:33)
[2021-10-25] MEDS ORDERED: [UNRECOGNIZED DRUG - OTHER] PO SCH (08:30)
[2021-10-25] MEDS ORDERED: FERROUS SULFATE 325 MG TAB PO SCH (09:00)
[2021-10-25] MEDS ORDERED: LIOTHYRONINE SODIUM 5 MCG TAB PO SCH (09:00)
--- NOTE | 2021-10-25 09:00 | XCELERA ---
[id number] \\[id number]
--- NOTE | 2021-10-25 09:04 | Gastrointestinal Consultation ---
Date of Consultation October 25, 2021 Assessment & Plan (1) Chest pain: Plan 35 year old female with pmhx of scleroderma, Sjogren's syndrome, and gastroparesis who presented to ED for evaluation of chest pain and failure to thrive. She tells met that over the past 2 weeks she has noticed chest pain that comes on with when she was exercising on a stationary bike. she also admits to worsening tachycardia during these episodes. Pain does radiate into jaw and right shoulder. She tells me that she feels this is different from her typical heartburn pain. Also with complaints of dysphagia but it may be related to scleroderma. - discussed case with Dr. Anderson. - continue protonix 40mg bid. - If patient is cleared by cardiology from their standpoint will consider EGD for this afternoon. she had a few sips of protein drink at about [address] NPO for now. I have advised the patient to hold further oral intake. - would advise avoiding nsaids. Supervising Physician Co-Signing Physician Notes I personally evaluated the patient and agree with the findings as documented by HAILEE Doe Exam: Constitutional: WD/WN, vitals as above General: EOM intact bilaterally Neck: normal visual inspection Respiratory: normal respiratory effort, lungs clear to auscultation Cardiovascular: RRR, no murmur, no edema Gastrointestinal: abdomennormal to inspection, nondistended, soft, nontender, no hepatosplenomegaly Musculoskeletal: no cyanosis, head normal to inspection Skin: no rashes, warm and dry Neurologic: moves all extremities Psychiatric: A and O x3, euthymic affect History of Present Illness Reason for Consultation: chest pain, concern for ulcer Requesting Physician: Dr. Sergio Reagan Attending Physician: Elysia Corral MD History of Present Illness 35 year old female with pmhx of scleroderma, Sjogren's syndrome, and gastroparesis who presented to ED for evaluation of chest pain and failure to thrive. She tells met that over the past 2 weeks she has noticed chest pain that comes on when she was exercising on a stationary bike. she also admits to worsening tachycardia during these episodes. She tells me pain does radiate into her jaw and her right shoulder. She tells me that this is different from her typical heartburn though admits she still gets this but only after eating. when she does get heartburn she can get associated nausea. she also complains of dysphagia to foods/liquids but she feels this may be related to her scleroderma. she does admit to heavy nsaid use in the past. she tried to hold her nsaids for 2 days but could not tolerate joint pain so she resumed using these. she admits to very little oral intake with only having 1-2 protein shakes a day. she does not have any chest pain currently. Initial troponin was negative. EKG showed TWIs in V2 - V6, II, III, and aVF which appears stable to me going back to 2019. she did have echo done this morning with no significant change since 2019. she is set up for outpatient egd in the coming week or two. denies vomiting, abdomnial pain, change in bowels, melena, or brbpr. Allergies Allergy/AdvReac Type Severity Reaction Status Date / Time bupropion Allergy Intermediate Hives Verified 10/24/21 18:34 ferumoxytol [From Feraheme] Allergy Intermediate Hypotension, Verified 10/24/21 18:34 flushing, nausea, back pain fluoxetine Allergy Intermediate Hives Verified 10/24/21 18:34 levothyroxine Allergy Intermediate Hives Verified 10/24/21 18:34 metoclopramide [From Reglan] AdvReac Intermediate Anxiety Verified 10/24/21 18:34 technetium-99m AdvReac Intermediate Confusion Verified 10/24/21 18:34 Home Medications Medication Instructions Recorded Confirmed Type diphenhydramine HCl 25 mg capsule 75 mg PO HS 11/03/18 10/24/21 History (Benadryl) [id number] C-Mn 500 2 cap PO BID 11/03/18 10/24/21 History mg-400 mg capsule (Glucosamine Chondroitin Maximum Strength) sennosides 8.6 mg-docusate sodium 1 tabcap PO TID 01/27/19 10/24/21 History 50 mg tablet (Senokot-S) cholecalciferol (vitamin D3) 25 5,000 units PO QAM 02/11/19 10/24/21 History mcg (1,000 unit) tablet (Vitamin D3) nystatin 100,000 unit/mL oral 10 ml PO QID #280 mL 06/11/19 10/24/21 Rx suspension docusate sodium 100 mg capsule 100 mg PO TID 10/25/19 10/24/21 History (Colace) levothyroxine 100 mcg capsule 100 mcg PO QAM 10/25/19 10/24/21 History (Tirosint) lamotrigine 25 mg tablet (Lamictal) 75 mg PO QAM 04/14/20 10/24/21 History naproxen sodium 220 mg capsule 220 mg PO BID PRN Pain 03/21/21 10/24/21 History (Aleve) omeprazole magnesium 20 mg 40 mg PO BID #60 tabs 10/12/21 10/24/21 Rx tablet,delayed release (Prilosec OTC) lamotrigine 150 mg tablet 75 mg PO DIRECTED 10/24/21 10/24/21 History liothyronine 5 mcg tablet (Cytomel) 5 mcg PO QAM 10/24/21 10/24/21 History methylphenidate HCl 18 mg 18 mg PO QAM 10/24/21 10/24/21 History tablet,extended release 24 hr Patient History Medical History ADHD Anxiety Bipolar 2 disorder Bowel dysfunction delayed motility Burning mouth syndrome chronic Chronic constipation Depression Difficulty swallowing chronic Dry mouth 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 Echo done 10/20/19 shows trivial valve disease, normal LV function. 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 Postural orthostatic tachycardia syndrome Prediabetes diet controlled Raynauds disease Scleroderma Sjogrens syndrome Undifferentiated connective tissue disease Surgical History H/O left knee surgery History of anesthesia reaction "slow to wake " History of arthroscopy of right knee X 2 History of esophagogastroduodenoscopy (EGD) History of surgery x2--I&D of left pointer finger Hx of colonoscopy Hx of wisdom tooth extraction Family History Father Circulation problem Family history of diabetes mellitus Mini stroke Depression Cardiac disorder Family hx colonic polyps Family history of reaction to anesthesia slow to wake up Hypertension Grandfather Cardiac disorder Grandmother Myocardial infarction Hypertension Uncle Myocardial infarction Mother Depression Aunt Breast cancer Grandmother (Maternal) Family history of diabetes mellitus Denies family history of Ovarian cancer Colorectal cancer Social History Smoking Status: Never smoker Second Hand Exposure: No; Hx Alcohol Use: No Hx Substance Use: No Preferred Language: Faroese Communication Ability: Effective Visual Impairment: Limited Hearing Ability: Normal Radiology Assistant Required: No Beliefs That Will Affect Care: None marital status: Single Current Living Situation: Parent Current Living Situation Comment: Lives with parents current occupational status: unemployed Feels Safe at Home: Yes Childhood Exposure to Second-Hand Smoke: No Dental Care, Regularly: No Physical Activity Frequency: Does not Exercise Seatbelt Use: always Sunscreen Use: Yes Do you think of yourself as: straight/heterosexual Assistive Devices: Crutches Review of Systems Constitutional: no fever and no chills Physical Exam Constitutional: WD/WN, vitals as above Eyes: + anicteric sclerae and PERRL ENMT: external ear and nose normal, oropharynx normal Respiratory: normal respiratory effort, lungs clear to auscultation Cardiovascular: RRR, no murmur, no edema Gastrointestinal (Abdomen): normal bowel sounds, soft, nontender, no hepatosplenomegaly Skin: no rashes, warm and dry Psychiatric: A+Ox3, euthymic affect Results & Data ([facility]) Vital Signs (Past 12 Hours) Vital Signs Temp Pulse Pulse Resp BP Pulse Ox O2 Del Method 10/25/21 07:43 36.6 C 74 14 93/63 L 97 Room Air 10/25/21 02:20 56 L 10/25/21 02:20 36.8 C 82 18 115/81 100 Room Air 10/24/21 22:26 61 12 106/60 100 Room Air PG Care Time/CCT Total # of Minutes Spent Total Time Spent with Patient: Total time spent is greater than 50% in coordination of care (as documented) at patient's floor/unit and/or counseling patient: Coding Level of Care Code 36709 Inpt Consult Level 4 Diagnoses Chest pain R07.9
[2021-10-25] MEDS: lamoTRIgine 25 MG TAB PO SCH ×3 (10:04→14:46)
[2021-10-25] MEDS ORDERED: LIOTHYRONINE SODIUM 5 MCG PO SCH (10:30)
[2021-10-25] MEDS ORDERED: OMEPRAZOLE 20 MG CAPCR PO SCH (10:30)
[2021-10-25] MEDS ORDERED: DOCUSATE SODIUM 100 MG CAP PO SCH (10:30)
[2021-10-25] MEDS ORDERED: DOBUTamine HCL 12.5 MG/ML 20 ML VIAL IV ONE (12:47)
[2021-10-25] MEDS ORDERED: METOPROLOL TARTRATE 1 MG/ML VIAL IV ONE (12:47)
[2021-10-25] MEDS ORDERED: ATROPINE SULFATE 0.1 MG/ML 10ML SYR IV ONE (12:47)
[2021-10-25] MEDS ORDERED: PROPRANOLOL HCL 10 MG TAB PO SCH (14:00)
--- NOTE | 2021-10-25 14:15 | Cardiology Consultation ---
Date of Consultation October 25, 2021 Assessment & Plan (1) Chest pain: (2) Palpitations: (3) Abnormal ECG: (4) Hypermobile Cheyenne-Danlos syndrome: (5) Hypothyroidism: Plan 35-year-old woman with multiple medical problems who noted recent onset of atypical chest pain and tachypalpitations. Of note, based on her report of genetic testing, she does not have the COL3A1 gene which would have indicated the vascular subset of Ehler Danlos, but rather she has hypermobile Cheyenne-Danlos syndrome, which does not have specific genetic identifying features. Importantly, this would mean that she is NOT at risk for the vascular complications that often come to mind when discussing Cheyenne-Danlos syndrome. Her echocardiogram does not show any of the vascular Cheyenne-Danlos features (no mitral valve prolapse, no aortic root dilation), nor does it show features to suggest clinically severe scleroderma (pulmonary hypertension, right ventricular dilation). The absence of dynamic ECG changes or wall motion abnormalities on dobutamine stress echocardiogram indicates an absence of inducible myocardial ischemia. The development of symptoms at a relatively nontachycardic heart rate (85 bpm) suggests increased visceral perception to adrenergically augmented cardiac activity, perhaps such as during exercise. Although she could potentially benefit from a low-dose of beta-gonzalo, this can have variable effects on individuals with orthostatic hypotension, would defer this in the absence of more lifestyle limiting or progressive symptoms. In order to better characterize her palpitations, would recommend MCOT monitor as outpatient, this will also help determine the relative risks/benefits of beta-blockade. At this point, she could be discharged home with plans to review her MCOT monitor. Did encourage her to continue her exercise as able, since this will reduce her adrenergic milieu as well as helping to develop tolerance to the increased visceral perception of cardiac phenomena. Thank you for this most interesting consultation. 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 In recent weeks, she has noted intermittent chest discomfort, first occurring shortly after she finished her usual stationary bicycle routine. She noted this discomfort lasted for about an hour at that time. Subsequently, she has had episodes at rest, sometimes lasting for many hours up to a day or so. The discomfort is generally anterior but can occur in either her epigastric or sternal regions and can radiate to her left shoulder, back, or neck. She also notes intermittent palpitations experienced as a "fast regular heartbeat", these sometimes occur concurrently with chest discomfort and other times she has chest discomfort alone or palpitations alone. She often notes associated nausea with either the chest discomfort or the palpitations. She did note improvement in her symptoms after taking Aleve. She has not had any recent major orthostatic symptoms and notes no presyncope or syncope. At the time of our evaluation, she felt fatigued but had no specific somatic complaints. Her baseline ECG is abnormal (widespread minor ST depression and T wave inversions), but her troponin has been consistently normal and an echocardiogram today was clearly normal. There was no mitral valve prolapse, aortic root dilatation, or evidence of elevated pulmonary artery pressure. She did also undergo a dobutamine stress echocardiogram today, during the study she noted subjective palpitations, nausea, and central chest pressure when her heart rate increased from 55 bpm to 85 bpm (sinus rhythm). There was no further increase in symptoms at heart rates up to 160 [address]pm. ECG showed baseline [address]/T abnormalities which did not increase during pharmacologic induced tachycardia. Echocardiogram showed appropriate augmentation of left ventricular systolic function and no wall motion abnormalities. At the conclusion of the study, her symptoms resolved and she was hemodynamically stable. Allergies Allergy/AdvReac Type Severity Reaction Status Date / Time bupropion Allergy Intermediate Hives Verified 10/24/21 18:34 ferumoxytol [From Feraheme] Allergy Intermediate Hypotension, Verified 10/24/21 18:34 flushing, nausea, back pain fluoxetine Allergy Intermediate Hives Verified 10/24/21 18:34 levothyroxine Allergy Intermediate Hives Verified 10/24/21 18:34 metoclopramide [From Reglan] AdvReac Intermediate Anxiety Verified 10/24/21 18:34 [id number] AdvReac Intermediate Confusion Verified 10/24/21 18:34 Home Medications Medication Instructions Recorded Confirmed Type diphenhydramine HCl 25 mg capsule 75 mg PO HS 08/06/19 07/27/22 History (Benadryl) [id number] C-Mn 500 2 cap PO BID 11/03/18 10/24/21 History mg-400 mg capsule (Glucosamine Chondroitin Maximum Strength) sennosides 8.6 mg-docusate sodium 1 tabcap PO TID 01/27/19 10/24/21 History 50 mg tablet (Senokot-S) cholecalciferol (vitamin D3) 25 5,000 units PO QAM 02/11/19 10/24/21 History mcg (1,000 unit) tablet (Vitamin D3) nystatin 100,000 unit/mL oral 10 ml PO QID #280 mL 06/11/19 10/24/21 Rx suspension docusate sodium 100 mg capsule 100 mg PO TID 10/25/19 10/24/21 History (Colace) levothyroxine 100 mcg capsule 100 mcg PO QAM 10/25/19 10/24/21 History (Tirosint) lamotrigine 25 mg tablet (Lamictal) 75 mg PO QAM 04/14/20 10/24/21 History naproxen sodium 220 mg capsule 220 mg PO BID PRN Pain 03/21/21 10/24/21 History (Aleve) omeprazole magnesium 20 mg 40 mg PO BID #60 tabs 10/12/21 10/24/21 Rx tablet,delayed release (Prilosec OTC) lamotrigine 150 mg tablet 75 mg PO DIRECTED 10/24/21 10/24/21 History liothyronine 5 mcg tablet (Cytomel) 5 mcg PO QAM 10/24/21 10/24/21 History methylphenidate HCl 18 mg 18 mg PO QAM 10/24/21 10/24/21 History tablet,extended release 24 hr Patient History Medical History ADHD Anxiety Bipolar 2 disorder Bowel dysfunction delayed motility Burning mouth syndrome chronic Chronic constipation Depression Difficulty swallowing chronic Dry mouth 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 Echo done 10/20/19 shows trivial valve disease, normal LV function. 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 Postural orthostatic tachycardia syndrome Prediabetes diet controlled Raynauds disease Scleroderma Sjogrens syndrome Undifferentiated connective tissue disease Surgical History H/O left knee surgery History of anesthesia reaction "slow to wake " History of arthroscopy of right knee X 2 History of esophagogastroduodenoscopy (EGD) History of surgery x2--I&D of left pointer finger Hx of colonoscopy Hx of wisdom tooth extraction Family History Father Circulation problem Family history of diabetes mellitus Mini stroke Depression Cardiac disorder Family hx colonic polyps Family history of reaction to anesthesia slow to wake up Hypertension Grandfather Cardiac disorder Grandmother Myocardial infarction Hypertension Uncle Myocardial infarction Mother Depression Aunt Breast cancer Grandmother (Maternal) Family history of diabetes mellitus Denies family history of Ovarian cancer Colorectal cancer Social History Smoking Status: Never smoker Second Hand Exposure: No; Hx Alcohol Use: No Hx Substance Use: No Preferred Language: French Communication Ability: Effective Visual Impairment: Limited Hearing Ability: Normal Calculation Clerk Required: No Beliefs That Will Affect Care: None marital status: Single Current Living Situation: Parent Current Living Situation Comment: Lives with parents current occupational status: unemployed Feels Safe at Home: Yes Childhood Exposure to Second-Hand Smoke: No Dental Care, Regularly: No Physical Activity Frequency: Does not Exercise Seatbelt Use: always Sunscreen Use: Yes Do you think of yourself as: straight/heterosexual Assistive Devices: Crutches Physical Exam Physical Exam: Adult white female with BMI 16.2. No distress. BP 93/57 mmHg. Pulse 60 bpm regular. Respirations unlabored. Skin: no ecchymoses or generalized lesions. HEENT: unremarkable. Neck: no JVD or carotid bruits. Lungs: clear. Cardiac: regular rhythm, no murmur or gallop. Abdomen: benign. Extremities: no edema, pulses intact. Neurologic: normal affect, nonfocal. Results & Data ([facility]) Vital Signs (Past 12 Hours) Vital Signs Temp Pulse Pulse Resp BP Pulse Ox O2 Del Method 10/25/21 10:41 97.7 F 60 17 93/57 L 100 Room Air 10/25/21 08:00 56 L 10/25/21 07:43 97.9 F 74 14 93/63 L 97 Room Air 10/25/21 02:20 56 L 10/25/21 02:20 98.2 F 82 18 115/81 100 Room Air Laboratory Results High-sensitivity troponin was negative on 10/14/2021 and on admission yesterday. Normal sodium, potassium 3.4, BUN 13, creatinine 0.61. Magnesium 2.0 yesterday and today. Diagnostic Findings ECG yesterday showed sinus rhythm with 1 mm of slightly downsloping ST depression in the inferior and anterior/anterolateral leads with inverted T waves in the same leads. Compared with a 10/14/2021 study, no significant change. As noted, echocardiogram was completely unremarkable. Chest x-ray on admission showed no acute process. Chest CT on 10/14/2021 showed no evidence of aortic dissection or pulmonary embolism. Nonspecific pulmonary densities right lung apex. PG Care Time/CCT Total # of Minutes Spent Total Time Spent with Patient: Total time spent is greater than 50% in coordination of care (as documented) at patient's floor/unit and/or counseling patient: Coding Level of Care Code 94341 Inpt Consult Level 4 Diagnoses Chest pain R07.9 Palpitations R00.2 Abnormal ECG R94.31 Hypermobile Cheyenne-Danlos syndrome Q79.62 Hypothyroidism E03.9
--- NOTE | 2021-10-25 14:58 | Anesthesiology Consultation ---
Date of Service October 25, 2021 Assessment & Plan (1) Encounter for pre-operative examination: Chart Review Chart Review: Acceptable Risk for Surgery and Patient NOT seen in Pre Admission Testing Consults Requested none History Surgery Operation Date: 10/25/21 18:15 Proposed Procedures p Esophagogastroduodenoscopy Dr. Anderson - Marshall Anderson MD Height/Weight Height: 5 ft 6 in Weight: 45.6 kg Allergies Allergy/AdvReac Type Severity Reaction Status Date / Time bupropion Allergy Intermediate Hives Verified 10/24/21 18:34 ferumoxytol [From Feraheme] Allergy Intermediate Hypotension, Verified 10/24/21 18:34 flushing, nausea, back pain fluoxetine Allergy Intermediate Hives Verified 10/24/21 18:34 levothyroxine Allergy Intermediate Hives Verified 10/24/21 18:34 metoclopramide [From Reglan] AdvReac Intermediate Anxiety Verified 10/24/21 18:34 technetium-99m AdvReac Intermediate Confusion Verified 10/24/21 18:34 Medications Home Medications Medication Instructions Recorded Confirmed Last Taken diphenhydramine HCl 25 mg capsule 75 mg PO HS 11/03/18 10/24/21 10/23/21 (Benadryl) [id number] C-Mn 500 2 cap PO BID 11/03/18 10/24/21 10/24/21 mg-400 mg capsule (Glucosamine Chondroitin Maximum Strength) sennosides 8.6 mg-docusate sodium 1 tabcap PO TID 01/27/19 10/24/21 10/24/21 50 mg tablet (Senokot-S) cholecalciferol (vitamin D3) 25 5,000 units PO QAM 02/11/19 10/24/21 10/24/21 mcg (1,000 unit) tablet (Vitamin D3) nystatin 100,000 unit/mL oral 10 ml PO QID #280 mL 06/11/19 10/24/21 10/24/21 suspension docusate sodium 100 mg capsule 100 mg PO TID 10/25/19 10/24/21 10/24/21 (Colace) levothyroxine 100 mcg capsule 100 mcg PO QAM 10/25/19 10/24/21 10/24/21 (Tirosint) lamotrigine 25 mg tablet (Lamictal) 75 mg PO QAM 04/14/20 10/24/21 10/24/21 naproxen sodium 220 mg capsule 220 mg PO BID PRN Pain 03/21/21 10/24/21 10/14/21 08:00 (Aleve) omeprazole magnesium 20 mg 40 mg PO BID #60 tabs 10/12/21 10/24/21 10/24/21 tablet,delayed release (Prilosec OTC) lamotrigine 150 mg tablet 75 mg PO DIRECTED 10/24/21 10/24/21 10/24/21 liothyronine 5 mcg tablet (Cytomel) 5 mcg PO QAM 10/24/21 10/24/21 10/24/21 methylphenidate HCl 18 mg 18 mg PO QAM 10/24/21 10/24/21 10/24/21 tablet,extended release 24 hr Active Medications Generic Name Dose Route Start Last Admin Trade Name Hirenq PRN Reason Stop Dose Admin Docusate Sodium 100 mg 10/25/21 10:30 10/25/21 10:23 Docusate Sodium 100 Mg Cap PO 11/24/21 10:29 Not Given BID CARLITOS Ferrous Sulfate 325 mg 10/25/21 09:00 10/25/21 08:21 Ferrous Sulfate 325 Mg Tab PO 11/24/21 08:59 Not Given QAM CARLITOS Lamotrigine 75 mg 10/25/21 10:30 10/25/21 14:46 Lamotrigine 25 Mg Tab PO 11/24/21 10:29 Not Given TID CARLITOS Levothyroxine Sodium 1 each 10/25/21 07:00 10/25/21 08:25 Tirosint 100 Mcg PO 11/24/21 06:59 1 each DAILYBB CARLITOS Administration Liothyronine Sodium 5 mcg 10/25/21 10:30 10/25/21 10:23 Liothyronine Sodium 5 Mcg Cap (T3 Sr 5 Mcg) PO 11/24/21 10:29 5 mcg QAM CARLITOS Administration Omeprazole 40 mg 10/25/21 10:30 10/25/21 10:23 Omeprazole 20 Mg Capcr PO 11/24/21 10:29 Not Given BID CARLITOS Senna/Docusate Sodium 1 tab 10/24/21 21:00 10/25/21 13:33 Docusate Sodium/Senna 50/8.6mg Tab PO 11/23/21 20:59 Not Given TID CARLITOS Past Medical History Medical History ADHD Anxiety Bipolar 2 disorder Bowel dysfunction delayed motility Burning mouth syndrome chronic Chronic constipation Depression Difficulty swallowing chronic Dry mouth 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 Echo done 10/20/19 shows trivial valve disease, normal LV function. 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 Postural orthostatic tachycardia syndrome Prediabetes diet controlled Raynauds disease Scleroderma Sjogrens syndrome Undifferentiated connective tissue disease Past Family History Family History Father Circulation problem Family history of diabetes mellitus Mini stroke Depression Cardiac disorder Family hx colonic polyps Family history of reaction to anesthesia slow to wake up Hypertension Grandfather Cardiac disorder Grandmother Myocardial infarction Hypertension Uncle Myocardial infarction Mother Depression Aunt Breast cancer Grandmother (Maternal) Family history of diabetes mellitus Denies family history of Ovarian cancer Colorectal cancer Past Surgical History Surgical History H/O left knee surgery History of anesthesia reaction "slow to wake " History of arthroscopy of right knee X 2 History of esophagogastroduodenoscopy (EGD) History of surgery x2--I&D of left pointer finger Hx of colonoscopy Hx of wisdom tooth extraction Social History Smoking Status: Never smoker Hx Alcohol Use: No Hx Substance Use: No substance use type: does not use Physical Exam Vital Signs Last Vital Signs Temp 97.7 F 10/25/21 10:41 Pulse 60 10/25/21 10:41 Resp 17 10/25/21 10:41 BP 93/57 L 10/25/21 10:41 Pulse Ox 100 10/25/21 10:41 O2 Del Method 10/25/21 10:41 Testing Laboratory Results 10/25/21 05:59 Electrocardiogram Date: 10/24/21 Findings: + NSR @ Echocardiogram Date: 10/25/21 EF: 60-65 Valvular Disease: + no significant valvular disease
[2021-10-25] MEDS ORDERED: LIDOCAINE 2% MPF LOCAL 5 ML VIAL INFIL ONE (15:06)
[2021-10-25] MEDS ORDERED: PROPOFOL IV EMULSION 10 MG/ML 20 ML VIAL IV ONE (15:06)
[2021-10-25 15:15] LABS: BUN Creatinine Ratio 16.1 (10-20); Est GFR (African American) 136.4 ml/min; Est GFR (Non-African American) 117.6 ml/min
--- NOTE | 2021-10-25 15:43 | XCELERA ---
[id number]
--- NOTE | 2021-10-25 15:53 | GI REPORT ---
Patient Name: Shelby Geronimo Procedure Date: 10/25/2021 3:22 PM Date of : 1985 Admit Type: Inpatient Age: 35 Gender: Female Attending MD: Marshall Anderson MD Procedure: Upper GI endoscopy Providers: Marshall Anderson MD Referring MD: Niko Solitario Indications: Dysphagia, Unexplained chest pain Medicines: Monitored Anesthesia Care Complications: No immediate complications. Estimated blood loss: None. Estimated Blood Loss: Estimated blood loss: none. Procedure: Pre-Anesthesia Assessment: - Prior Anticoagulants: The patient has taken no previous anticoagulant or antiplatelet agents. - ASA Grade Assessment: II - A patient with mild systemic disease. After obtaining informed consent, the endoscope was passed under direct vision. Throughout the procedure, the patient's blood pressure, pulse, and oxygen saturations were monitored continuously. The Endoscope was introduced through the mouth, and advanced to the second part of duodenum. The upper GI endoscopy was accomplished without difficulty. The patient tolerated the procedure well. Findings: No endoscopic abnormality was evident in the esophagus to explain the patient's complaint of dysphagia. It was decided, however, to proceed with dilation of the entire esophagus. A guidewire was placed and the scope was withdrawn. Dilation was performed with a Savary dilator with no resistance at 45 Fr. The dilation site was examined following endoscope reinsertion and showed no change. Biopsies were taken with a cold forceps for histology. Estimated blood loss: none. Diffuse mild inflammation characterized by erythema was found in the stomach. Biopsies were taken with a cold forceps for Helicobacter pylori testing. Estimated blood loss: none. The duodenal bulb and second portion of the duodenum were normal. Impression: - No endoscopic esophageal abnormality to explain patient's dysphagia. Esophagus dilated. Dilated. Biopsied. - Gastritis. Biopsied. - Normal duodenal bulb and second portion of the duodenum. Recommendation: - Discharge patient to home (with escort). - Resume previous diet today. - Await pathology results. Marshall Anderson MD 10/25/2021 3:52:29 PM This report has been signed electronically. Note Initiated On: 10/25/2021 3:22 PM Number of Addenda: 0 I attest to the content of the Intraoperative Record and orders documented therein, exceptions below {[id number]}
--- NOTE | 2021-10-25 16:49 | Anesthesiology Progress Note ---
Date of Service October 25, 2021 Anesthesia Post Procedure Vital Signs Vital Signs: Temp Pulse Pulse Resp BP BP Pulse Ox 10/25/21 16:36 55 L 16 89/55 L 98 10/25/21 16:11 52 L 16 97/61 L 100 10/25/21 16:26 56 L 16 97/67 L 100 10/25/21 15:56 52 L 16 87/54 L 100 10/25/21 15:39 48 L 10/25/21 15:15 36.9 C 56 L 18 94/60 L 100 10/25/21 10:41 36.5 C 60 17 93/57 L 100 10/25/21 08:00 56 L 10/25/21 07:43 36.6 C 74 14 93/63 L 97 10/25/21 02:20 56 L 10/25/21 02:20 36.8 C 82 18 115/81 100 10/24/21 22:26 61 12 106/60 100 10/24/21 20:55 36.6 C 56 L 18 105/62 100 10/24/21 19:00 10/24/21 19:00 10/24/21 17:30 70 18 98 O2 Del Method 10/25/21 16:36 10/25/21 16:11 Room Air 10/25/21 16:26 Room Air 10/25/21 15:56 Room Air 10/25/21 15:39 10/25/21 15:15 Room Air 10/25/21 10:41 Room Air 10/25/21 08:00 10/25/21 07:43 Room Air 10/25/21 02:20 10/25/21 02:20 Room Air 10/24/21 22:26 Room Air 10/24/21 20:55 Room Air 10/24/21 19:00 Room Air 10/24/21 19:00 Room Air 10/24/21 17:30 Room Air Pain Intensity Chest: Pain Intensity: 5 Transfer of Care Handoff Completed per policy Notes Mental Status: alert / awake / arousable Patient Amnestic to Procedure: Yes Nausea / Vomiting: adequately controlled Pain: adequately controlled Airway Patency, RR, SpO2: stable & adequate BP & HR: stable & adequate Hydration State: stable & adequate Anesthetic Complications: no major complications apparent
[2021-10-25] MEDS ORDERED: SODIUM CHLORIDE 0.9% 1000ML 1,000 ML IV ONE (17:02)
--- NOTE | 2021-10-25 17:29 | Electrocardiogram Report ---
Test Reason : Blood Pressure : / mmHG Vent. Rate : 091 BPM Atrial Rate : 091 BPM P-R Int : 134 ms QRS Dur : 074 ms QT Int : 372 ms P-R-T Axes : 055 034 -86 degrees QTc Int : 457 ms Normal sinus rhythm Global Nonspecific ST and T wave abnormality Abnormal ECG When compared with ECG of 14-OCT-2021 20:37, No significant change was found Confirmed by Shamar Tom ([id number]) on 10/25/2021 5:28:39 PM Referred By: Niko Solitario Confirmed By:Shamar Tom
--- NOTE | 2021-10-25 17:47 | Discharge Summary ---
Date of Service October 25, 2021 Admission HPI Per Admitting Provider 35yo F w/ hx of scleroderma, Sjogren's syndrome, and gastroparesis who presents for chest pain and failure to thrive. The patient reports that she has had a recent trauma and has had a gastroparesis flare up and has been able to have a lot less food than recently. Per GI note, she has mostly been consisting on 1-2 protein shakes a day. Her GI & PCP notes indicate she has lost about 15 lbs this month. She has seen a variety of providers for this, including [facility], [facility], and with plans to see [facility] soon. She was recently seen by [facility] with concern for an ulcer given her large NSAID use. The reason she was sent today is for chest pain. She notes that she was working out two days ago (10/14) lightly on an exercise bike and had an episode of palpitations and chest pain. She describes the pain as a central and left-sided chest pain and palpitations that resolved with rest. She attempted some light work-out the next day with another episode of chest pain with dizziness and nausea. She saw her PCP on 10/17, and per her report, was given a normal bill of health. She then tried to work out this past Friday. She reports a more prolonged period of chest pain with similar symptoms. Admission Exam Per Admitting Provider Constitutional: WD/WN, vitals as above Eyes: EOM intact bilaterally; no conjunctival abnormality ENMT: external ear and nose normal, oropharynx normal Neck: trachea midline, no thyromegaly normal visual inspection Respiratory: normal respiratory effort, lungs clear to auscultation no respiratory distress Cardiovascular: RRR, no murmur, no edema Gastrointestinal (Abdomen): Inspection/Auscultation: abdomen normal to inspection; abdomen not distended Musculoskeletal: no cyanosis or clubbing, extremities motor strength 5/5 Skin: no rashes, warm and dry Neurologic: moves all extremities and awake Psychiatric: Orientation: alert, oriented to person and cooperative Principal Diagnosis Gastroparesis with Chest Pain Discharge Exam Constitutional WD/WN, vitals as above Eyes PERRL, conjunctivae normal, anicteric sclerae ENMT external ear and nose normal, oropharynx normal Neck trachea midline, no thyromegaly Respiratory normal respiratory effort, lungs clear to auscultation Cardiovascular RRR, no murmur, no edema Chest (Breasts) Chest: normal inspection of chest Gastrointestinal (Abdomen) normal bowel sounds, soft, nontender, no hepatosplenomegaly Skin no rashes, warm and dry Discharge Data Allergies Allergy/AdvReac Type Severity Reaction Status Date / Time bupropion Allergy Intermediate Hives Verified 10/24/21 18:34 ferumoxytol [From Feraheme] Allergy Intermediate Hypotension, Verified 10/24/21 18:34 flushing, nausea, back pain fluoxetine Allergy Intermediate Hives Verified 10/24/21 18:34 levothyroxine Allergy Intermediate Hives Verified 10/24/21 18:34 gluten Allergy Verified 10/25/21 15:54 metoclopramide [From Reglan] AdvReac Intermediate Anxiety Verified 10/24/21 18:34 [id number] AdvReac Intermediate Confusion Verified 10/24/21 18:34 Consultations 10/24/21 17:28 ED Decision to Admit Stat 10/24/21 20:34 Consult Cardiology Routine Consult Gastroenterology Routine Procedures Performed Operation Date: 10/25/21 18:15 Actual Procedures p EGD Biopsy Dilatation - Marshall Anderson MD Hospital Course (1) Chest pain: 35yo F w/ hx of scleroderma, Sjogren's syndrome, and gastroparesis who presents for chest pain and failure to thrive. -Patient received 1L NSS on 10/24, refuses additional IVF states she wants to receive fluids only from [facility]. -recomment [facility] per Cardiology (1) Chest pain: 3 separate episodes of exercise-induced chest pain. Also notes occasional palpitations that cause chest pain, sometimes caused by eating food and other times without inciting event. PCP worried chest pain is anginal in nature and sent her for emergent evaluation. No chest pain on admit. Recieved 1L NSS on admit. Initial troponin was negative. EKG showed TWIs in V2 - V6, II, III, and aVF. This appears stable to be going back to 2019. Cardiology consulted. Echo normal does not show any of the vascular [place]- Danlos features (no mitral valve prolapse, no aortic root dilation), nor does it show features to suggest clinically severe scleroderma (pulmonary hypertension, right ventricular dilation)., Stress test no signs of ischemia, did note similar chest pain occur at 85bpm. Uncertain if beta gonzalo will benefit her at this time given her POTS, would defer this in the absence of more lifestyle limiting or progressive symptoms. Recommend [facility] monitor as outpatient, this will also help determine the relative risks/benefits of beta-blockade. Did encourage her to continue her exercise as able, since this will reduce her adrenergic milieu as well as helping to develop tolerance to the increased visceral perception of cardiac phenomena. (2) Epigastric pain: Has been following with GI who have some concern for gastric ulcer with heavy NSAID use. Continue home PPI PO BID. GI consulted, performed EGD, dilated esophagus, noted gastritis biopsy taken, otherwise normal. Awaiting biopsy results, may resume normal diet. (3) Weight loss: Weight loss over this last year with reduce PO intake. Follows with multiple GI groups. Nutrition consulted (4) Hypothyroidism: Takes both levothyroxine and liothyronine. Continue home meds. TSH, FT4, and FT3 wnl (5) Bipolar 2 disorder: Mood appears somewhat depressed, but overall normal. Continue home lamotrigine ()Iron Deficiency Anemia Iron panel Iron 27 Ferritin 3.91, patient refused oral iron supplement. ()Hypokalemia 3.4 on admit, repleted. (2) Hypermobile Cheyenne-Danlos syndrome: (3) Palpitations: (4) Epigastric pain: (5) Bipolar 2 disorder: (6) Gastroparesis: (7) Anxiety: (8) Depression: (9) IBS (irritable bowel syndrome): (10) Hypothyroidism: Total Time Total Time Spent Total Time Spent (In Minutes): see attending attestation Discharge Plan Discharge Items Patient Disposition: Home - Self-Care Reason For Visit: CHEST PAIN Discharge Diagnosis: Gastroparesis with Chest Pain Activity: Resume your previous activity Non-emergency contact: Primary Care Provider Call non-emergency contact if: you have any medication questions, your symptoms worsen, your pain is concerning for you and you have a fever Follow-up/Referrals: Niko Solitario MD [Primary Care Provider] - Michelle Peter MD [Resident] - (follow up in 1 week for chest pain with HR>80 normal echo and stress test) Diet: Regular Addtl Attending Provider Instructions: You were admitted to the hospital for Chest Pain and Gastroparesis. You were seen by Cardiology, who did an Echo of your heart, which was normal, and a Stress Test for your heart, which demonstrated your chest pain at 80 beats per minute but was otherwise normal. They recommend you follow up with your PCP and use a heart monitor to track your symptoms to see if heart rate medication management would be appropriate for you. You were seen by Gastroenterology, who performed an EGD, dilated your esophagus and found some signs of gastritis. We have not found additional causes for your difficulty eating. We have contacted your PCP to renew your [facility] order, please check with [facility] to ensure your order gets renewed. A discharge summary will be sent to your primary care physician to ensure continuity of care. Please bring this discharge summary with you to your next office appointment so that your provider can review it at that time. Follow-up appointments: Make a follow-up appointment with your PCP within the next week. It is very important that you follow up with them shortly after discharge from the hospital. Keep all your follow-up appointments as already scheduled. If you cannot make an appointment, notify your provider. Medications: Your medication list has been reviewed and reconciled upon discharge to ensure accuracy and continuity of care. An updated list of all your medications is included with your hospital discharge paperwork. Please review this list closely, and make note of any changes. Take your medications as instructed; do not skip a dose of your medicines. Make sure all of your doctors know every medicine you are taking (including pfzb-svz-pydtymy medicines, vitamins, and supplements). Call your primary care provider before taking any new medicines (including [id number] medicines, vitamins, and supplements), because some of these may interact with your current medications, or may make your symptoms worse. Tell your primary care provider if you cannot afford your medications. CONTACT YOUR PRIMARY CARE PROVIDER if you experience any of the following: Fever, chills, difficulty breathing Weakness, lethargy, loss of consciousness Difficulty following your treatment plan, or difficulty taking medications CALL 911 OR GO TO THE EMERGENCY DEPARTMENT if you experience any of the following: Sudden, severe abdominal pain or nausea/vomiting Severe chest pain, or chest pain that radiates (moves) to your jaw or arm Sudden, severe shortness of breath or difficulty breathing Thank you for allowing us to participate in your care. Pending Studies at Discharge: No Stand-Alone Forms: My cicayda, Smoking Cessation Medications and DC Order Prescriptions: Continued lamotrigine [Lamictal] 25 mg tablet 75 mg PO QAM nystatin 100,000 unit/mL suspension 10 ml PO QID Qty: 280 5RF omeprazole magnesium [Prilosec OTC] 20 mg tablet,delayed release (DR/EC) 40 mg PO BID Qty: 60 2RF cholecalciferol (vitamin D3) [Vitamin D3] 25 mcg (1,000 unit) tablet 5,000 units PO QAM sennosides-docusate sodium [Senokot-S] 8.6-50 mg tablet 1 tabcap PO TID docusate sodium [Colace] 100 mg Capsule 100 mg PO TID levothyroxine [Tirosint] 100 mcg capsule 100 mcg PO QAM xotnsjksibh-lmceakbdi-nyv C-Mn [Glucosamine Chondroitin MaxStr] 500-400 mg capsule 2 cap PO BID Label Comments: Taking 2 caps at lunch; 2 caps at dinner Rx Instructions: Takes 2 at lunch and 2 at dinner diphenhydramine HCl [Benadryl] 25 mg capsule 75 mg PO HS naproxen sodium [Aleve] 220 mg Capsule 220 mg PO BID PRN (Reason: Pain) lamotrigine 150 mg tablet 75 mg PO DIRECTED Rx Instructions: 1/2 tablet in afternoon and evening = 150mg total dose liothyronine [Cytomel] 5 mcg tablet 5 mcg PO QAM methylphenidate HCl 18 mg tablet extended release 24hr 18 mg PO QAM Discharge Orders: Discharge Order (Routine); Ordered 10/25/21 Ordered By: Ana Duncan Admission Data Admit Date/Time: 10/24/21 18:27 Attending Provider: Elysia Corral Admit Provider: Sergio Reagan Primary Care Provider: Niko Solitario Other Providers: Sergio Reagan ; Aryan Barbour ; Marshall Anderson Other Interventions: Discharge Summary Assessment (RN) Last Done: 10/25/21 17:57 Resident Activity Tracking Resident Involvement: Resident Care Provided Care Provided: Adult Hospital Medicine
[2021-10-25] MEDS ORDERED: HYDROXYCHLOROQUINE SULFATE 200 MG TAB PO SCH (21:00)
[2021-10-26] MEDS ORDERED: METHYLPHENIDATE 18 MG PO SCH (09:00)
[2021-10-26] MEDS ORDERED: PATIENT'S OWN CONTROLLED MED 1 PO SCH (09:00)
== END 2021-10-25 19:35 | disposition home or self-care (01) ==
LOC: ED 16:05 → EDINP 16:05 → SUATTDRO 18:27 → 2E 20:55